=== PATIENT | male | born 1985 | race Caucasian/White ===

== ENCOUNTER 2020-05-25 18:39 | Emergency (ER) | payer SELFPAY ==
[2020-05-25 18:43] VITALS: BP 155/89; PULSE 95; RESP 16; TEMP 36.4; O2SAT 99
--- NOTE | 2020-05-25 18:59 | ED.GENADUL_ITS ---
Discharge Plan Disposition Patient Disposition: HOME Condition: Stable Discharge Details Clinical Impression: Abdominal pain, Elevated blood pressure reading, Elevated ALT measurement, Alcohol abuse Primary Care Provider: None,None ED Provider: Isabella Newman Home Meds and New Rx's Prescriptions: No Action No Known Home Meds RF: 0 Discharge Instructions Instructions: Abuse of Alcohol (ED), Abdominal Pain (ED) Additional Instructions: Your imaging is reassuring today. Please increase your water intake. Please continue with your MiraLAX to help with bowel movements. If you continue to have difficulties, you may try Colace or magnesium citrate. Your location of the pain has me concerned for gallbladder disease. I have referred you for outpatient ultrasound. Have also referred you to a local primary care. Please discuss with your alcohol dependence further with them. As we discussed, abrupt cessation can be dangerous. Please try to cut back on your alcohol intake. Please consider reading recovery teacher again. Please refer to the information in your packet for further details on local options to help you stop drinking safely. Your blood pressure is noted to be elevated today. Please follow-up with your primary care to discuss further. If you develop vomiting, increased pain, fevers or other new/worsening symptoms please seek care urgently once again. Otherwise, please follow-up closely with primary care as well as general surgery. Referrals: Enriqueta Shepard MD [ [facility]] - Discharge Data Discharge Date/Time-TO BE ENTERED AT DEPARTURE: 05/25/20 21:30 Medical Decision Making Patient is a pleasant 34-year-old male presented to complaint of right-sided abdominal pain. He reports that the pain has been intermittent for a week 1 month. States over the past 3 days has become more constant. Finds that it worsens when he drinks alcohol. Patient reports that for the past year he has been drinking approximately 1/5 of vodka daily. Reports he lost his job prompting his return to alcohol. Patient does have a long history of addiction. He denies any nausea vomiting. States that he has not had normal bowel movement 2 days. She does not have any blood in his stool. Reports lower urinary output but reports that he did not drink water. Drinks soda and coffee. Denies testicular pain, penile discharge. On exam, patient appears nontoxic. He does appear anxious. He is noted to be hypertensive blood pressure 155/89. By tachycardic with a heart rate of 95. Lungs are clear, normal cardiac exam. Abdomen is tender along the right side. He is tender both in the right upper and right lower quadrant with pain over McBurney's point as well as a positive Ruth sign. No epigastric or left upper quadrant pain. No CVA tenderness. Differential diagnoses include appendicitis, colitis, cholecystitis. Also considered pancreatitis, alcohol induced liver disease versus other abdominal pathology. Plan for labs and CT imaging. Consulted with reading recovery teacher who came and evaluated patient. Initially, the patient had sounded like he would be interested in this. However, he declined their services to them. He did however take information regarding alcohol cessation. She did discuss safety concerns regarding stopping alcohol. Labs reviewed. No leukocytosis. Stable H&H. CMP largely unremarkable. ALT slightly elevated 78. Lipase within normal limits. FINDINGS: Lungs: Lung bases are clear. Liver: There is marked enlargement of the liver. Liver measures 21 cm. There is a diffuse decrease in hepatic parenchymal density, consistent with fatty infiltration. Gallbladder and bile ducts: Normal. No calcified stones. No ductal dilation. Pancreas: Normal. No ductal dilation. Spleen: Normal. No splenomegaly. Adrenal glands: Normal. No mass. Kidneys and ureters: Normal. No hydronephrosis. Stomach and bowel: No bowel obstruction or significant bowel wall thickening. There is mildly excessive colonic stool content. Appendix: A normal appendix is identified. Intraperitoneal space: Questionable trace free fluid at Quintanilla's pouch versus scarring. No other free fluid, fluid collections, or pneumoperitoneum. Vasculature: Unremarkable. No abdominal aortic aneurysm. Lymph nodes: Unremarkable. No enlarged lymph nodes. Urinary bladder: Unremarkable as visualized. Reproductive: Unremarkable as visualized. Bones/joints: No acute skeletal abnormality or aggressive osseous lesion. Soft tissues: Small bilateral fat containing inguinal hernias. IMPRESSION: 1. Questionable trace free fluid at Quintanilla's pouch versus scarring. 2. No other acute abdominopelvic pathology is otherwise appreciated. I discussed these findings with the patient. He does not have any increased pain after eating fatty foods, the increased pain after alcohol does have a concern for potential gallbladder disease although there is no evidence to suggest cholangitis, occult acute cholecystitis at this time. Questioning more chronic pathology. Plan for outpatient ultrasound. The pain is worse with alcohol, also consider gastritis although the location of the pain is not consistent with this. Patient I discussed p.o. trial of Mylanta and see if this helps his symptoms. Patient has not no change in his symptoms with the Mylanta. He continues to have low-grade abdominal pain. Patient I discussed treatment options. Ordered outpatient follow-up ultrasound. I have asked that he follow-up with general surgery regarding his abdominal discomfort. Patient does not have a local primary care, I have asked that he have follow-up with him as possible for evaluation of his alcohol abuse and elevated blood pressure. Strict return precautions were discussed. Encourage water intake for his constipation. We also discussed treatment options for his constipation. All of his questions and concerns were addressed and he is in agr eement this plan. HPI General Mode of arrival: ambulatory . Date/Time Provider Initiated Documentation: 05/25/20 18:58 . Limitations to Documentation: no limitations . Information obtained by: patient and RN notes reviewed . History of Present Illness 34 year old M presents to the emergency department with the chief complaint of right sided abdominal pain, described as moderate, with intensity rated at 5. Quality is described as aching, and is localized to the abdomen. Patient reports no radiation. Patient started experiencing this month(s) and it has been intermittent. No relieving factors improve symptom(s), Other factors that worsen symptoms (drinking alcohol) . Patient notes no other symptoms.; denies chest pain, diaphoresis, fever/chills, loss of appetite, nausea/vomiting, shortness of breath and weakness. Patient did receive the following treatments prior to arrival, none Related Data Home Medications Medication Instructions Recorded Confirmed Unknown [No Known Home Meds] 05/25/20 05/25/20 Allergies Allergy/AdvReac Type Severity Reaction Status Date / Time No Known Allergies Allergy Unverified 05/25/20 18:46 General Stated Complaint: Abd Prob APURVA: 3 Review of Systems Constitutional Constitutional: Reports as per HPI, Denies chills, Denies fatigue, Denies fever(s) and Denies headache(s) ENT Ears, Nose, Mouth, and Throat: Denies headache(s) Cardiovascular Cardiovascular: Reports as per HPI, Denies chest pain and Denies dyspnea Respiratory Respiratory: Reports as per HPI, Denies cough and Denies dyspnea Gastrointestinal Gastrointestinal: Reports as per HPI Genitourinary Genitourinary: Reports oliguria Musculoskeletal Musculoskeletal: Reports as per HPI and Denies back pain Integumentary/Breasts Skin/Breast: Reports as per HPI and Denies rash Neurologic Neurologic: Reports as per HPI and Denies headache(s) Endocrine Endocrine: Denies fatigue [facility] Social History Smoking/Tobacco Use Status: Former Tobacco Use Smoking risk assessment performed?: Yes Alcohol Intake: current Alcohol Intake frequency: a few times a week Alcohol type: hard liquor Drug use: Occasionally Substance use type: former substance user and marijuana Do you feel safe at home: Yes Do you feel safe in your relationship?: Yes Exam Const General: cooperative, healthy appearing, comfortable, no acute distress, well developed and anxious Nutritional Appearance: well nourished and overweight Orientation: alert and awake HENMT Head: normal to inspection Mouth: moist mucous membranes Resp Effort & Inspection: normal respiratory effort, able to speak in complete sentences and no respiratory distress Auscultation: clear to auscultation bilaterally, no rales, no rhonchi and no wheezes Cardio Rate: regular rate Rhythm: regular rhythm Heart Sounds: S1 normal and S2 normal GI Inspection: normal to inspection, distended, no scars, no visible herniation and no visible pulsation Palpation: soft, no hepatosplenomegaly, not firm, no guarding, no hernias, no pulsatile masses, not rigid and tender in the RLQ, in the RUQ, at McBurney's point and Ruth's sign positive; with no rebound tenderness Percussion: normal to percussion Auscultation: normal bowel sounds Back/Spine/Pelvis Back: no CVA tenderness Skin General skin exam: no rashes or lesions noted Trauma: no lacerations or abrasions Neuro General: patient alert and patient awake Cognition: normal cognition Speech: speech normal Gait: normal gait Psych Appearance: grossly normal and well kempt Mental Status: mental status grossly normal Speech and Movement: speech and movement normal Course Vital Signs Vital signs: Vital Signs Temperature 36.4 C L 05/25/20 18:43 Pulse 95 H 05/25/20 18:43 Respiratory Rate 16 05/25/20 18:43 Blood Pressure 155/89 H 05/25/20 18:43 Pulse Oximetry 99 05/25/20 18:43 Temperature 36.4 C L 05/25/20 18:43 Temperature Source Skin 05/25/20 18:43 Pulse 95 H 05/25/20 18:43 Respiratory Rate 16 05/25/20 18:43 Respiratory Effort 05/25/20 18:48 Blood Pressure 155/89 H 05/25/20 18:43 Blood Pressure Position Sitting 05/25/20 18:43 Pulse Oximetry 99 05/25/20 18:43 Oxygen Delivery Method Room Air 05/25/20 18:43 Oxygen Flow Rate 0 05/25/20 18:43 Pain Level 5 05/25/20 18:43
--- NOTE | 2020-05-25 19:00 | DI.CT_ITS ---
EXAM: CT ABDOMEN PELVIS W CLINICAL HISTORY: right sided abdominal point TECHNIQUE: COMPARISON: No exams were available for comparison FINDINGS: CT examination of the abdomen and pelvis was performed with bolus infusion of 100 cc of Omnipaque 350 . Images obtained through the lung bases are unremarkable. Note is made of hepatic steatosis and mild hepatic enlargement. Spleen is unremarkable in appearance.. Gallbladder and bile ducts are unremarkable. Pancreas is unremarkable in appearance. Adrenals appear normal bilaterally. Kidneys appear normal with no evidence of renal mass, hydronephrosis, or nephrolithiasis. Urinary bl adder is nearly empty, question mild thickening urinary bladder wall, cystitis or bladder outlet obst ruction not excluded. There is no evidence of abdominal or pelvic adenopathy. Abdominal aorta is of normal diameter and no major vascular abnormality is seen. Appendix is normal. No evidence diverticulitis or bowel obstruction. Tiny bilateral fat containing inguinal hernias noted. Impression: No evidence of acute intra-abdominal process. Question slight urinary bladder wall thickening, this is difficult to confirm due to under distention of the bladder. Hepatic steatosis noted. RADIATION DOSE DELIVERED: 1,117.96mGy.cm Total DLP 1,117.96mGy.cm Total DLP DATA REPOSITORY: All CT scans at this facility are submitted to the National Radiology Data Registry (NRDR) Dose Index Registry (DIR) with the [employer] ([employer]). RADIATION OPTIMIZATION: All CT scans at this facility use at least one of these dose optimization te chniques: automated exposure control; mA and/or kV adjustment per patient size (includes targeted exa ms where dose is matched to clinical indication); or iterative reconstruction.
[2020-05-25] MEDS: Lactated Ringers 1,000 ML 1000 ML IV (19:34)
[2020-05-25 19:38] VITALS: BP 173/86; PULSE 88; RESP 16; O2SAT 98
[2020-05-25 19:40] LABS: Abs Immature Grans 0.07 10^3/uL (0.0-0.06); Absolute Basophil Count 0.05 10^3/uL (0.0-0.2); Absolute Eosinophil Count 0.04 10^3/uL (0.0-0.7); Absolute Lymphocyte Count 2.37 10^3/uL (1.2-3.4); Absolute Monocyte Count 0.84 10^3/uL (0.1-0.8); Absolute Neutrophil Count 4.81 10^3/uL (1.2-6.7); Basophils % 0.6; Eosinophils % 0.5; HCT 44.4 % (40.0-50.0); HGB 15.1 g/dL (13.5-17.5); Immature Grans % 0.9; MCH 32.8 pg (27.0-33.0); MCV 96.3 fL (80-95); MPV 9.8 fL (8.0-11.0); Monocytes % 10.3; Neutrophils % 58.7; Nucleated RBC 0 %; Platelet Count 290 10^3/uL (130-400); RBC 4.61 10^6/uL (4.36-5.78); RDW-SD 42.6 fL; WBC 8.18 10^3/uL (4.4-10.8)
[2020-05-25 19:42] LABS: Bilirubin Negative (Negative); Blood Negative (Negative); Clarity Clear (Clear); Glucose Negative (Negative); Ketones Trace mg/dL (Negative); Leukocyte Esterase Negative (Negative); Nitrite Negative (Negative); Urobilinogen 0.2 EU/dL (Up TO 0.2)
[2020-05-25 19:54] LABS: INR 1.1 (0.9-1.1); PTT Activated 28.1 sec (21.0-27.5); Prothrombin Time 11.2 sec (9.3-11.0)
[2020-05-25 20:00] LABS: ALT 78 U/L (16-63); AST 35 U/L (15-37); Albumin 4.1 g/dL (3.4-5.0); Alkaline Phosphatase 110 U/L (46-116); Anion Gap 7.6 mmol/L (3-11); BUN 7 mg/dL (7-18); Bilirubin, Total 0.5 mg/dL (0.2-1.0); CO2 28.4 mmol/L (21.0-32.0); CREATININE 0.9 mg/dL (0.70-1.30); Calcium 9.1 mg/dL (8.5-10.1); Chloride 103 mmol/L (98-107); Glucose 97 mg/dL (74-106); Lipase 59 U/L (73-393); Magnesium 1.9 mg/dL (1.8-2.4); Potassium 4.1 mmol/L (3.5-5.1); Sodium 139 mmol/L (136-145)
[2020-05-25] MEDS: Normal Saline Flush 10 ML SYR IVP (20:31)
[2020-05-25] MEDS: Normal Saline - Diluent 50 ML VIAL IV (20:31)
--- NOTE | 2020-05-25 20:55 | DI.VRAD_ITS ---
PROCEDURE INFORMATION: Exam: CT Abdomen And Pelvis With Contrast Exam date and time: 05/25/2020 8:23 PM Age: 34 years old Clinical indication: Abdominal pain; Localized; Right upper quadrant (ruq); Patient HX: Right sided abdominal point tender over mcburney's and ruq with +murphys TECHNIQUE: Imaging protocol: Computed tomography of the abdomen and pelvis with contrast. Radiation optimization: All CT scans at this facility use at least one of these dose optimization techniques: automated exposure control; mA and/or kV adjustment per patient size (includes targeted exams where dose is matched to clinical indication); or iterative reconstruction. Contrast material: VISIPAQUE 320; Contrast volume: 100 ml; Contrast route: INTRAVENOUS (IV); COMPARISON: No relevant prior studies available. FINDINGS: Lungs: Lung bases are clear. Liver: There is marked enlargement of the liver. Liver measures 21 cm. There is a diffuse decrease in hepatic parenchymal density, consistent with fatty infiltration. Gallbladder and bile ducts: Normal. No calcified stones. No ductal dilation. Pancreas: Normal. No ductal dilation. Spleen: Normal. No splenomegaly. Adrenal glands: Normal. No mass. Kidneys and ureters: Normal. No hydronephrosis. Stomach and bowel: No bowel obstruction or significant bowel wall thickening. There is mildly excessive colonic stool content. Appendix: A normal appendix is identified. Intraperitoneal space: Questionable trace free fluid at Quintanilla's pouch versus scarring. No other free fluid, fluid collections, or pneumoperitoneum. Vasculature: Unremarkable. No abdominal aortic aneurysm. Lymph nodes: Unremarkable. No enlarged lymph nodes. Urinary bladder: Unremarkable as visualized. Reproductive: Unremarkable as visualized. Bones/joints: No acute skeletal abnormality or aggressive osseous lesion. Soft tissues: Small bilateral fat containing inguinal hernias. IMPRESSION: 1. Questionable trace free fluid at Quintanilla's pouch versus scarring. 2. No other acute abdominopelvic pathology is otherwise appreciated. Dictated and Authenticated by: Nils Owens MD. Ordering:BANDAR Mason MD
[2020-05-25] MEDS: Mylanta Suspension 30 ML CUP PO (21:18)
[2020-05-25 21:28] VITALS: BP 133/66; PULSE 80; RESP 17; TEMP 36.6; O2SAT 98
--- NOTE | 2020-05-26 13:12 | NUR.NOTE ---
Nursing Note: Referral was faxed for US to DI last night. DI called pt and left message with time and to call and confirm the appt, He did not call to confirm and did not show up for the appt per DI. Shamika Gloria
--- NOTE | 2020-05-26 13:27 | NUR.NOTE ---
Nursing Note: [facility] for follow up ABDIRASHID for abd pain. Shamika Gloria
== END 2020-05-25 21:30 | disposition home or self-care (01) ==
PROVIDERS: Emergency Provider Physician Assistant
DX: R10.11 Right upper quadrant pain (principal); R03.0 Elevated blood-pressure reading, without diagnosis of hypertension; R74.01 Elevation of levels of liver transaminase levels; F10.10 Alcohol abuse, uncomplicated
CPT/HCPCS: 36415; 80053; 83690; 96360; 99285; 74177; 81003; 83735; 85025; 85610; 85730; 99284

== ENCOUNTER 2023-04-10 14:50 | Outpatient (REF) | payer MEDICAID, SELFPAY ==
[2023-04-10 15:52] LABS: Abs Immature Grans 0.04 10^3/uL (0.0-0.06); Absolute Basophil Count 0.07 10^3/uL (0.0-0.2); Absolute Eosinophil Count 0.34 10^3/uL (0.0-0.7); Absolute Lymphocyte Count 2.47 10^3/uL (1.2-3.4); Absolute Monocyte Count 0.86 10^3/uL (0.1-0.8); Absolute Neutrophil Count 4.78 10^3/uL (1.2-6.7); Basophils % 0.8; HCT 39.7 % (40.0-50.0); HGB 13.3 g/dL (13.5-17.5); Immature Grans % 0.5; Lymphocytes % 28.9; MCH 29.8 pg (27.0-33.0); MCHC 33.5 % (32.0-36.0); MCV 89 fL (80-95); MPV 9.5 fL (8.0-11.0); Neutrophils % 55.8; Platelet Count 294 10^3/uL (130-400); RBC 4.46 10^6/uL (4.36-5.78); RDW 12.6 % (11.8-14.1); RDW-SD 41.4 fL; WBC 8.56 10^3/uL (4.4-10.8)
[2023-04-10 16:19] LABS: ALT 80 U/L (16-63); AST 55 U/L (15-37); Albumin 3.7 g/dL (3.4-5.0); Alkaline Phosphatase 135 U/L (46-116); Anion Gap 5.2 mmol/L (3-11); BUN 16 mg/dL (7-18); Bilirubin, Total 0.5 mg/dL (0.2-1.0); CO2 29.8 mmol/L (21.0-32.0); CREATININE 0.7 mg/dL (0.70-1.30); Calcium 9.1 mg/dL (8.5-10.1); Calculated LDL 121 mg/dL (<100); Chloride 99 mmol/L (98-107); Cholesterol 189 mg/dL (<200); Estimated GFR 122.47 (mL/min/1.73m2); Glucose 99 mg/dL (74-106); HDL Cholesterol 52 mg/dL (40-60); Potassium 4.5 mmol/L (3.5-5.1); Sodium 134 mmol/L (136-145); Total Protein 7.7 g/dL (6.4-8.2); Triglyceride 83 mg/dL (<150)
[2023-04-10 16:38] LABS: Vitamin D 25 Total 19.8 ng/mL (30-100)
[2023-04-10 16:44] LABS: Uric Acid 5.7 mg/dL (3.5-7.2)
[2023-04-10 23:48] LABS: HIV-1/2 Ag & Ab Screen Negative (Negative)
[2023-04-10 23:57] LABS: Hepatitis C Ab w Rflx HCV PCR Negative (Negative)
[2023-04-11 11:52] LABS: Syphilis Serology (RPR) Negative (Negative)
[2023-04-12 14:40] LABS: Chlamydia Result Negative (Negative); GC Result Negative (Negative)
== END 2023-04-10 14:51 | disposition home or self-care (01) ==
LOC: NCHCN 14:50
PROVIDERS: Visit Provider Nurse Practitioner Family
DX: M79.674 Pain in right toe(s) (principal); Z00.00 Encounter for general adult medical examination without abnormal findings
CPT/HCPCS: 80053; 80061; 82306; 86803; 87389; 87491; 87591; 84550; 85025; 86592

== ENCOUNTER → 2023-04-14 00:25 | Outpatient (CLI) | payer MEDICAID, SELFPAY ==
--- NOTE | 2023-04-14 | DI.US_ITS ---
Exam(s) US ABDOMEN LIMITED EXAM: US ABDOMEN LIMITED CLINICAL HISTORY: ELEVATED LIVER ENZYMES R74.01 HX ALCOHOL ABUSE TECHNIQUE: Ultrasound abdomen performed using standard protocol. COMPARISON: CT CT ABDOMEN PELVIS W from 05/25/2020 FINDINGS: There is no ascites evident. LIVER: Liver is hyperechoic indicating steatosis. There no discrete focal hepatic lesions identified . GALLBLADDER/BILIARY: There are no gallstones. No gallbladder wall edema nor pericholecystic fluid. The common hepatic duct isnot dilated, measuring 3-4mm at the level of maría hepatis. PANCREAS: There is no evidence of pancreatic mass nor dilatation of the pancreatic duct. RIGHT KIDNEY:No evidence of solid mass, calculus, nor hydronephrosis. No cortical cysts evident. IMPRESSION: 1. No evidence of cholelithiasis nor dilatation of the biliary tree. 2. Hepatic steatosis. No discrete focal hepatic lesions. 3. No other right upper quadrant ultrasound findings and no ascites evident DATA REPOSITORY:
== END ==
PROVIDERS: Visit Provider Nurse Practitioner Family
DX: K76.0 Fatty (change of) liver, not elsewhere classified (principal)
CPT/HCPCS: 76705

== ENCOUNTER 2024-03-27 10:03 | Emergency (ER) | payer MEDICAID, SELFPAY ==
[2024-03-27 10:06] VITALS: BP 184/97; PULSE 112; RESP 18; TEMP 36.6; O2SAT 97
--- NOTE | 2024-03-27 10:58 | ED.GENADUL_ITS ---
Discharge Plan Disposition Patient Disposition: Home Condition: Good Discharge Details Chief Complaint: PsychEval Clinical Impression: Acute hypokalemia, Encounter for medical screening examination Primary Care Provider: Unknown,Unknown ED Provider: Raudel Olmstead Home Meds and New Rx's Prescriptions: No Action No Known Home Meds Discharge Instructions Instructions: Hypokalemia Additional Instructions: At this time you have been seen and assessed and no significant medical abnormality is noted. Your potassium is slightly low, please focus on a potassium rich diet for the next few weeks. Please follow-up closely with your supportive groups on an outpatient nonemergent basis. If you notice any worsening of your symptoms, or any new symptoms such as vomiting, diarrhea, fever, chills, shortness of breath, chest pain, numbness, weakness, or fainting , please return immediately to the emergency department for reevaluation. Please follow up with your primary care provider as soon as possible for reassessment and reevaluation. As always, it was a pleasure participating in your medical care today. HPI General Date/Time Provider Initiated Documentation: 03/27/24 10:07 . HPI Narrative: This is a pleasant 38-year-old male who denies any significant past medical history aside for previous history of alcohol abuse, crack use, xylazine use, fentanyl use, who states that I have been sober for quite some time now who presents today for mental health evaluation. For months state police were called to his family's home after there was allegedly a big argument between the patient and family. Per family he had been going on and on about various atypical and odd thoughts, with components of hyperreligiosity. Patient was found walking down the road, [facility] approached him, and he stated that he would be happy to come in to be evaluated to prove that he is not crazy. He was brought in for further assessment. Patient denies any homicidal, suicidal ideations, auditory or visual hallucinations. He states that he has been segovia bstance free for the past 3 to 4 weeks. He denies any personal history of mental health issues, and states that he has not taken any mental health medications in the past. He denies fever chills or headache. He denies any other complaints. He does speak quite profusely about various ideas and concepts including political anabaptist and theoretical concepts. Related Data Home Medications ?Medication ?Instructions ?Recorded ?Confirmed Unknown [No Known Home Meds] 05/25/20 03/27/24 Allergies Allergy/AdvReac Type Severity Reaction Status Date / Time No Known Allergies Allergy Unverified 03/27/24 10:12 General Stated Complaint: PsychEval APURVA: 2 Exam Narrative Exam Narrative: 1.Const: Well-nourished, Well-developed, appearing stated age 2.Eyes: PERRL, no conjunctival injection, and symmetrical lids. 3.ENT: Atraumatic external nose and ears. Moist MM. Neck: Symmetric, trachea midline, No thyromegaly. 4.CVS: +S1/S2, Peripheral pulses 2+ and equal in all extremities. Brisk capillary refill in all extremities. 5.RESP: Unlabored respiratory effort. Clear to auscultation bilaterally. No wheezes rales or rhonchi 6.GI: Soft, Nontender/Nondistended, No hepatosplenomegaly. No guarding or rebound. 7.MSK: Normocephalic/Atraumatic, Extremities w/o deformity or ttp No cyanosis or clubbing, Normal movement of all extremities 8.Skin: Warm, Dry. No rashes or lesions. 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 Sensation grossly intact, no focal neurologic deficits. 10.Psych: (AAO) x3. Patient demonstrates pressured speech, and flight of ideas. Multiple topics are covered in a short amount of time. Patient is very cordial otherwise, with no confrontational component. Course Vital Signs Vital signs: Vital Signs Temperature 36.6 C 03/27/24 10:06 Pulse 112 H 03/27/24 10:06 Respiratory Rate 18 03/27/24 10:06 Blood Pressure 184/97 H 03/27/24 10:06 Pulse Oximetry 97 03/27/24 10:06 Temperature 36.6 C 03/27/24 10:06 Temperature Source Oral 03/27/24 10:06 Pulse 112 H 03/27/24 10:06 Respiratory Rate 18 03/27/24 10:06 Blood Pressure 184/97 H 03/27/24 10:06 Blood Pressure Position Sitting 03/27/24 10:06 Pulse Oximetry 97 03/27/24 10:06 Oxygen Delivery Method Room Air 03/27/24 10:06 Oxygen Flow Rate 0 03/27/24 10:06 Medical Decision Making This is a pleasant 38-year-old male who denies any significant past medical history aside for previous history of alcohol abuse, crack use, xylazine use, fentanyl use, who states that I have been sober for quite some time now who presents today for mental health evaluation. For months state police were called to his family's home after there was allegedly a big argument between the patient and family. Per family he had been going on and on about various atypical and odd thoughts, with components of hyperreligiosity. Patient was found walking down the road, P approached him, and he stated that he would be happy to come in to be evaluated to prove that he is not crazy. He was brought in for further assessment. Patient denies any homicidal, suicidal ideations, auditory or visual hallucinations. He states that he has been substance free for the past 3 to 4 weeks. He denies any personal history of mental health issues, and states that he has not taken any mental health medications in the past. He denies fever chills or headache. He denies any other complaints. He does speak quite profusely about various ideas and concepts including political anabaptist and theoretical concepts. Physical exam demonstrates well-appearing male, notable pressured speech and flight of ideas, he discusses multiple topics in a very short period of time, including WW3, the evangelical of President elected Trump, nuclear holocaust, the social challenges he has undergone over the last 3 years, etc. He notably denies any desire to hurt anyone. He is quite compliant with all requests and questions. He is very pleasant to interact with otherwise. Differential certainly does include kojo, questionable bipolar, but the statements being made seem well grounded in reality although on the fringes of send reality and they do not sound overly hallucinated. While the patient certainly appears to have a heightened excitability at this time he does not seem to be actively psychotic on my assessment. Out of an abundance of precaution we will get screening labs, we will evaluate for acute abnormalities, we will have mental health come and assess the patient. Patient otherwise remained stable at the time. Patient has been seen and assessed by mental health. They see no indication for involuntary services. Patient is declining any other additional assistance, th ey feel that patient is safe to discharge from a mental health standpoint. At this time the patient is not showing any concerning components of homicidal or suicidal ideations. He is excited components appear to be well-contained and at this time based in reality. While this may change in the future, we have recommended that he continue to follow-up closely with mental health advocates and counselors. He does have support groups that he states that he will be following up with. Safety plan was done. Patient's potassium is slightly low at 3.0, we did give oral potassium of 40 mEq. Recommend high potassium diet at home. Patient otherwise stable for discharge. I have extensively reviewed the treatment plan and discharge instructions with the patient. I have addressed all patient concerns at this time. The patient was made aware of what symptoms to monitor for that would warrant a return to the emergency department. Discussed the plan with the patient, they demonstrate verbal understanding and agreement with our assessment and plan at this time. The documentation in this chart was dictated using [employer] dictation software. Please excuse any dictation errors. Quality:SDOH Health Related Social Needs: No Data to Display PFSH All Active Problems (Updated 03/27/24 @ 12:13 by Raudel Olmstead DO) Encounter for medical screening examination (Acute) Acute hypokalemia (Acute) Alcohol abuse (Chronic) Elevated ALT measurement (Acute) Elevated blood pressure reading (Acute) Abdominal pain (Acute) Social History Smoking/Tobacco Use Status: Former Tobacco Use Smoking risk assessment performed?: Yes Alcohol Intake: current Alcohol Intake frequency: a few times a week Alcohol type: hard liquor Drug use: Occasionally Substance use type: former substance user and marijuana Details: Pt states he uses marijuana edibles occasionally 03/27/24 Pt denies ETOH use x approx. 3 weeks 03/27/24 Do you feel safe at home: Yes Do you feel safe in your relationship?: Yes
[2024-03-27 11:13] LABS: Abs Immature Grans 0.02 10^3/uL (0.0-0.06); Absolute Basophil Count 0.05 10^3/uL (0.0-0.2); Absolute Eosinophil Count 0.02 10^3/uL (0.0-0.7); Absolute Lymphocyte Count 2.13 10^3/uL (1.2-3.4); Absolute Monocyte Count 0.76 10^3/uL (0.1-0.8); Absolute Neutrophil Count 5.51 10^3/uL (1.2-6.7); Basophils % 0.6 %; Eosinophils % 0.2 %; HCT 38.9 % (40.0-50.0); HGB 13.4 g/dL (13.5-17.5); Immature Grans % 0.2 %; Lymphocytes % 25.1 %; MCH 30.6 pg (27.0-33.0); MCHC 34.4 % (32.0-36.0); MCV 89 fL (80-95); MPV 9.5 fL (8.0-11.0); Neutrophils % 64.9 %; Platelet Count 300 10^3/uL (130-400); RBC 4.38 10^6/uL (4.36-5.78); RDW-SD 42.4 fL; WBC 8.49 10^3/uL (4.4-10.8)
[2024-03-27 11:41] LABS: ALT 18 U/L (16-63); AST 15 U/L (15-37); Albumin 4.1 g/dL (3.4-5.0); Alkaline Phosphatase 100 U/L (46-116); Anion Gap 7.8 mmol/L (3-11); BUN 6 mg/dL (7-18); CO2 29.2 mmol/L (21.0-32.0); CREATININE 0.9 mg/dL (0.70-1.30); Calcium 9.2 mg/dL (8.5-10.1); Chloride 105 mmol/L (98-107); Estimated GFR 112.81 (mL/min/1.73m2); Glucose 95 mg/dL (74-106); Salicylate < 2.8 mg/dL (<2.8); Sodium 142 mmol/L (136-145); TSH (W/Ref FT4) 0.78 uIU/mL (0.36-3.74); Total Protein 7.7 g/dL (6.4-8.2)
[2024-03-27 11:42] LABS: Acetaminophen < 2 ug/mL (10-30); ETHANOL BLOOD < 3.0 mg/dL (<10)
--- NOTE | 2024-03-27 12:06 | PDOC.MHCN_ITS ---
Date of service: 03/27/24 Time of Service: 12:02 Mental Health Emergency Note Release [facility] release signed:: No Reason for Visit Fernando was brought to [facility] by P for a mental health evaluation In the last 2 weeks has the pt presented for ES prior to today?: Unknown Client Information Client is: New Well Housed: No,status: Not homeless, Unstable housing Non Suicidal Self Injury Current: No History: No Safety Risk/Harm to Self or Others Current Ideation to Harm Self or Others: No Risk: Does risk to harm exist?: No Risk: N/A Duty to warn indicated: No Asssessment/Mental Status Appearance: Unremarkable Attitude: Cooperative Behavior: Gait disturbances Speech: Normal Affect: Cogruent with mood Mood: Stressed and Anxious Thought process: Tangential Hallucinations: No evidence Delusions: No evidence Attention: Unremarkable Perception: Not impaired Orientation: Fully orientated Memory: Intact Insight: Fair Judgement: Fair Neurovegetative Symptoms Sleep: No change Appetitie: No change Interests: No change Energy: No change Libido: Not applicable Substance Use: Do you use nicotine?: No Have you used substances in the last 7 days?: No Additional Issues: Assaultive/Threatening Behavior: No Medical Concerns: No Client engaged in active self harm w/weapon: No Threatening to run away: No Child reported abuse/neglect: No Voluntarily presenting for services: Yes Domestic violence is a concern: No Extreme Psychosis or extreme behavior is present: No Impression Fernando presents to this lead technical writer in paper scrubs, sitting in a hospital bed in Zone B. Fernando reports he is doing okay, he is not crazy and he is angry about what is happening. Fernando reports his family has shunned him and he has shunned them back. Fernando reports his mother forged his signature on a lease document and he plans to take her to court for it as he does not want the lease and he knows that is illegal. 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 Fernando disclosed he does not have mental health issues, does not need support, is not endorsing SI, HI, or NSSI and never has. Fernando disclosed he has a good relationship with God so he could never harm himself and he would only harm someone else in self defense. Fernando disclosed he used to struggle with his substance use but he is currently sober and attends to maintain sobriety. Fernando reports he did not ask to be brought to the hospital for an eval so he is unsure why [facility] brought him. Fernando reports he is under a lot of stress with his family and trying to get custody of his daughter. Fernando continues to state he does not want MH support but is willing to engage with this lead technical writer throughout the assessment Resources Reosurces reviewed and given:: 988 and [facility] Plan/Disposition Recommended Disposition: Community resources. Plan: Fernando will return to the community on a safety plan. Fernando has a plan to go to his latter-day once discharged Person reported agreement to plan: Yes Reports/communication Outcome discussed with: ED/Personnel
[2024-03-27] MEDS: Potassium Chloride 20 MEQ TABCR 40 MEQ PO (12:17)
== END 2024-03-27 12:38 | disposition home or self-care (01) ==
PROVIDERS: Emergency Provider Student in an Organized Health Care Education/Training Program
DX: E87.6 Hypokalemia (principal); Z04.89 Encounter for examination and observation for other specified reasons
CPT/HCPCS: 00123; 80053; 80307; 99283; 80320; 80329; 84443; 85025

== ENCOUNTER 2024-03-29 03:56 | Emergency (ER) | payer MEDICAID, SELFPAY ==
[2024-03-29 04:02] VITALS: BP 191/78; PULSE 97; RESP 16; TEMP 37.1; O2SAT 97
--- NOTE | 2024-03-29 04:09 | ED.GENADUL_ITS ---
Discharge Plan Disposition Patient Disposition: Home Condition: Good Discharge Details Clinical Impression: Cold exposure Primary Care Provider: Unknown,Unknown ED Provider: Josefina Jackson Home Meds and New Rx's Prescriptions: No Action No Known Home Meds Discharge Instructions Additional Instructions: Call 211 to help identify resources to support you obtaining housing. Call your primary care doctor in the morning to schedule an appointment to followup on your blood pressure which is high here in the ED. Return to the emergency department for new or worsening symptoms. HPI General Mode of arrival: ambulatory . Date/Time Provider Initiated Documentation: 03/29/24 03:57 . Limitations to Documentation: no limitations . Information obtained by: patient and old records reviewed . HPI Narrative: 38yo M presenting for it's really cold out. Denies any physical complaints other than feeling cold. Has been walking around since 9pm trying to stay warm. Denies SI/HI/AH/VH. Otherwise in his usual state of health. Seen in this ED on 03/27 for mental health evaluation, evaluated by [facility] and declined services at that time. He denies any mental health concerns today and states that he is just looking for somewhere to sleep. Related Data Home Medications ?Medication ?Instructions ?Recorded ?Confirmed Unknown [No Known Home Meds] 05/25/20 03/29/24 Allergies Allergy/AdvReac Type Severity Reaction Status Date / Time No Known Allergies Allergy Verified 03/29/24 04:11 General Stated Complaint: ColdExpose APURVA: 5 Review of Systems Narrative: see HPI Exam Narrative Exam Narrative: General: Alert, well appearing, well nourished, in no acute distress. Head: Normocephalic, atraumatic Neck: Trachea midline, ?Neck supple. Cardiac: ?No cyanosis. Resp: No respiratory distress. Speaking in full sentences. Abd: ?Non-distended Extremities: ?No deformities.? No peripheral edema. Hands and feet without indication of frostbite/frostnip. Brisk capillary refill. Neurologic: GCS 15. ? Moves all extremities freely against gravity Psych: Calm, cooperative.? Well groomed.? Mood tired, affect congruent.? Speech with normal volume, rate, rythym and tone. Linear and goal directed.? Denies SI/HI/AH/VH. ? Does not appear to be responding to internal stimuli. No psychomotor slowing or agitation. Course Vital Signs Vital signs: Vital Signs Temperature 37.1 C 03/29/24 04:02 Pulse 97 H 03/29/24 04:02 Respiratory Rate 16 03/29/24 04:02 Blood Pressure 191/78 H 03/29/24 04:02 Pulse Oximetry 97 03/29/24 04:02 Temperature 37.1 C 03/29/24 04:02 Temperature Source Temporal Artery Scan 03/29/24 04:02 Pulse 97 H 03/29/24 04:02 Respiratory Rate 16 03/29/24 04:02 Blood Pressure 191/78 H 03/29/24 04:02 Blood Pressure Position Sitting 03/29/24 04:02 Pulse Oximetry 97 03/29/24 04:02 Oxygen Delivery Method Room Air 03/29/24 04:02 Oxygen Flow Rate 0 03/29/24 04:02 Pain Level 0 03/29/24 04:02 Medical Decision Making 38yo M presenting for it's really cold out. Denies any other physical complaints or mental health concerns includign SI/HI/AH/VH. No numbness or tingling in feet or hands. Hypertensive on arrival, vital signs otherwise reassuring. No chest pain, shortness of breath, vision changes, or decreased urine output to suggest hypertensive emergency; would not get labs and advised PCP followup for this. No indication of frostbite/dewitt nip on exam and he has no other complaints aside from cold. Does not appear to be in acute mental health crisis, does not want MH evaluation, and certainly does not meet involuntary criteria. I encouraged Mr. Molina to reach out to available services (i.e. [facility][note 3]) to assist with obtaining housing resources. Discharged; discharge instructions and return precautions were reviewed with patient who verbalized understanding. All questions were answered and he is in agreement with the plan. Quality:[facility] Health Related Social Needs: No Data to Display PFSH All Active Problems (Updated 03/29/24 @ 04:11 by Josefina Jackson MD) Cold exposure (Acute) Encounter for medical screening examination (Acute) Acute hypokalemia (Acute) Alcohol abuse (Chronic) Elevated ALT measurement (Acute) Elevated blood pressure reading (Acute) Abdominal pain (Acute) Social History Smoking/Tobacco Use Status: Former Tobacco Use Smoking risk assessment performed?: Yes Alcohol Intake: current Alcohol Intake frequency: a few times a week Alcohol type: hard liquor Drug use: Occasionally Substance use type: former substance user and marijuana Details: Pt states he uses marijuana edibles occasionally 03/27/24 Pt denies ETOH use x approx. 3 weeks 03/27/24 Do you feel safe at home: Yes Do you feel safe in your relationship?: Yes
== END 2024-03-29 06:00 | disposition home or self-care (01) ==
PROVIDERS: Emergency Provider Student in an Organized Health Care Education/Training Program
DX: T69.9XXA Effect of reduced temperature, unspecified, initial encounter (principal); Z59.00 Homelessness unspecified
CPT/HCPCS: 99282; 99283

== ENCOUNTER 2024-03-29 22:08 | Emergency (ER) | payer MEDICAID, SELFPAY ==
[2024-03-29 22:12] VITALS: BP 144/70; PULSE 97; RESP 18; TEMP 37.1; O2SAT 98
--- NOTE | 2024-03-29 22:30 | ED.GENADUL_ITS ---
Discharge Plan Discharge Details Chief Complaint: PsychEval Primary Care Provider: Unknown,Unknown ED Provider: Candelaria Romo Home Meds and New Rx's Prescriptions: No Action No Known Home Meds HPI General Mode of arrival: ambulatory . Date/Time Provider Initiated Documentation: 03/29/24 22:10 . Limitations to Documentation: no limitations . Information obtained by: patient and old records reviewed . HPI Narrative: HPI: This is a 38-year-old male patient who has a past medical history significant for depression, anxiety, polysubstance use disorder in early remission, and homelessness who is presenting for evaluation of hallucinations. The patient was discharged from our facility this morning, after sleeping overnight after he presented for cold exposure in the setting of his homelessness. He states that since the fall due to his homelessness he has had poor sleep, states that he believes he started experiencing hallucinations at that time due to his poor sleep. States that he often sees shimmering lights and shooting stars across his vision, sees numbers that are incorrect, and hears voices and music. Denies command hallucinations, denies suicidal or homicidal ideation. States that he occasionally feels paranoid, especially as regards having his phone hacked. States that the quality and quantity of the hallucinations has not changed and there was no acute event that prompted him to seek care tonight. The patient reports that he left this morning and had difficulty finding a place to stay, and states that today he decided that he was going to get help for the symptoms. He is interested in speaking with a social work to discuss mental health options. He states that he has been sober from fentanyl/xylazine for 3 months, crack for 2 month, has not use marijuana for 1 month. He does state that he drank alcohol 5 days ago, is not a daily or frequent drinker and has no history of severe alcohol withdrawal. Today the patient presents voluntarily, states that he has not had any ingestion or made any attempts to harm himself. He presented to the police station and they brought him here, though he was not accompanied by police and does not appear to be in police custody. Exam: Gen: Awake and alert, in no apparent distress HEENT: Non-icteric sclera, pupils equal and reactive at 3 mm bilaterally, EOMs are full, horizontal nystagmus extinguishable after a few beats bilaterally Neck: Supple Lungs: No apparent respiratory distress, normal respiratory effort. Lung sounds clear and equal bilaterally CV: Appears well perfused, heart with regular rate and rhythm, strong distal pulses Abdomen: Non-distended MSK: Moves 4 extremities without apparent limitation in ROM Skin: Visualized skin without rashes, cyanosis. Neuro: Normal Gait, no obvious focal deficits or facial asymmetry. Speaks in full, clear sentences. Psych: Endorsing hallucinations, denies SI/HI MDM: This is a 38-year-old male patient presenting for evaluation of several months of hallucinations. Differential includes but is not limited to primary psychiatric disorder, certainly considered alteration in sleep habits and patterns. Given the duration of time since his last substance use, this is unlikely to represent intoxication or acute withdrawal syndromes. He has no neurodeficits and his visual symptoms are more consistent with something like ocular strain or scotomas, and seem less consistent with symptoms due to intr acranial lesions. He has been tolerating oral intake, and is hemodynamically appropriate, and I have a lower concern for metabolic and electrolyte derangement, dehydration. I certainly considered presentation for secondary gain due to the patient's report of difficulty finding somewhere to sleep. At this time, the patient meets smart criteria for medical clearance without laboratory evaluation or imaging. He is voluntary, but given his new complaints, would benefit from an evaluation by [facility]. ED Course: The patient was resting comfortably, awaiting NK chest evaluation at the time that I signed him out to the oncoming provider. He remains voluntary, has not required any medications for restraint or sedation, and was hemodynamically appropriate throughout my shift. Candelaria Romo MD Related Data Home Medications ?Medication ?Instructions ?Recorded ?Confirmed Unknown [No Known Home Meds] 05/25/20 03/29/24 Allergies Allergy/AdvReac Type Severity Reaction Status Date / Time No Known Allergies Allergy Verified 03/29/24 04:11 General Stated Complaint: PsychEval APURVA: 2 Course Vital Signs Vital signs: Vital Signs Temperature 37.1 C 03/29/24 22:12 Pulse 97 H 03/29/24 22:12 Respiratory Rate 18 03/29/24 22:12 Blood Pressure 144/70 H 03/29/24 22:12 Pulse Oximetry 98 03/29/24 22:12 Temperature 37.1 C 03/29/24 22:12 Temperature Source Temporal Artery Scan 03/29/24 22:12 Pulse 97 H 03/29/24 22:12 Respiratory Rate 18 03/29/24 22:12 Blood Pressure 144/70 H 03/29/24 22:12 Blood Pressure Position Sitting 03/29/24 22:12 Pulse Oximetry 98 03/29/24 22:12 Oxygen Delivery Method Room Air 03/29/24 22:12 Oxygen Flow Rate 0 03/29/24 22:12 Pain Level 0 03/29/24 22:12 Medical Decision Making Quality:SDOH Health Related Social Needs: No Data to Display PFSH All Active Problems (Updated 03/29/24 @ 04:11 by Josefina Jackson MD) Cold exposure (Acute) Encounter for medical screening examination (Acute) Acute hypokalemia (Acute) Alcohol abuse (Chronic) Elevated ALT measurement (Acute) Elevated blood pressure reading (Acute) Abdominal pain (Acute) Social History Smoking/Tobacco Use Status: Former Tobacco Use Smoking risk assessment performed?: Yes Alcohol Intake: current Alcohol Intake frequency: a few times a week Alcohol type: hard liquor Drug use: Occasionally Substance use type: former substance user and marijuana Details: Pt states he uses marijuana edibles occasionally 03/27/24 Pt denies ETOH use x approx. 3 weeks 03/27/24 Do you feel safe at home: Yes Do you feel safe in your relationship?: Yes PAWSS Have you Been Recently Intoxicated or Drunk Within the Last 30 days?: Yes Have you Ever Experienced Previous Episodes of Alcohol Withdrawal?: Yes Have you ever Experienced Withdrawal Seizures?: Yes Have you ever Experienced Delirium Tremens(DT)s?: Yes Have you ever undergone Alcohol Rehabilitation Treatment (i.e, inpt ot outpatient treatment programs)?: No Have you ever Experienced Blackouts?: Yes Have you ever Combined Alcohol with other Downers within the last 90 days?: No Have you ever Combined Alcohol with any other Substance of Abuse during the last 90 days?: No Positive Blood Alcohol level on Presentation? [PCS.BAL]: No Evidence of Increased Autonomic Activity (i.e. HR>120, tremor, sweating, agitation, nausea)?: No Result: 5
--- OUTSIDE RECORDS SUMMARY | 2024-03-29 22:34 | XMS_ITS | Encounter Summary ---
Author Organization [facility] Address [address] [place] [address] Care Team Providers Care Entry Level Name Role Phone Unavailable Primary Care Provider Unavailabl e Encounter Details Date Type Department Care Team (Latest Contact Info) Description 08/22/2023 Specialty Pharmacy [facility] [address] [place] [address] Dorina Baker RPH Set up initial fill for Addiction Medicine, Patient Education for Addiction Medicine, Prospective Review for Addiction Medicine Social History Tobacco Use Types Packs/Day Years Used Date Smoking Tobacco: Never Assessed Sex and Gender Information Value Date Recorded Sex Assigned at Not on file Legal Sex Male 16:17 EST Gender Identity Not on file Sexual Orientation Not on file documented as of this encounter Progress Notes * Dorina Baker RPH - 08/22/2023 0940 EDT 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 To contact the clinic call: : DANI Justin Baseline labs: Not available - outside provider, outside lab Current medications: Outpatient Encounter Medications as of 08/22/2023 Medication Sig buprenorphine (BRIXADI) 24 mg/0.48 mL solution, extended rel syringe Inject 24 mg into the skin once a week. Daily Max: 24 mg cloNIDine HCL (CATAPRES) 0.1 mg tablet Take 1 Tablet by mouth every 8 hours as needed. hydrOXYzine (ATARAX) 25 mg tablet Take 1 Tablet by mouth every 6 hours as needed. traZODone (DESYREL) 50 mg tablet Take 1 Tablet by mouth at bedtime. No facility-administered encounter medications on file as of 08/22/2023. Allergies: NKDA Drug Interactions and Management Plan: Medication list source: Epic chart review, [facility] information, and [facility] DDI with current medication list checked Drug-drug interactions identified: None Comorbidities: reviewed Coinfection/Vaccination Assessment: Vaccine Date Result HCV N/A HBV N/A HIV 04/10/23 Negative Baseline Outcome: Number of admissions at [facility] related to OUD in last 6 months: 0 Dorina Baker, PharmD (she/her) Hand Coremaker Pharmacist [facility] Specialty Pharmacy 08/22/2023 Electronically signed by Dorina Baker [facility] at 08/22/2023 11:16 EDT documented in this encounter Plan of Treatment Not on file documented as of this encounter Visit Diagnoses Not on filedocumented in this encounter Historical Medications * This list may reflect changes made after this encounter. Vitamin A & Ergocalciferol,D2 , 1,250-135 unit capsule Take 1 Capsule by mouth daily. buprenorphine (BRIXADI) 24 mg/0.48 mL solution, extended rel syringe Inject 24 mg into the skin once a week. Daily Max: 24 mg traZODone (DESYREL) 50 mg tablet Take 1 Tablet by mouth at bedtime. 07/19/2023 hydrOXYzine (ATARAX) 25 mg tablet Take 1 Tablet by mouth every 6 hours as needed. 05/19/2023 cloNIDine HCL (CATAPRES) 0.1 mg tablet Take 1 Tablet by mouth every 8 hours as needed. 05/19/2023 added in this encounter
--- OUTSIDE RECORDS SUMMARY | 2024-03-29 22:34 | XMS_ITS | Encounter Summary ---
Author Organization [facility] Address [address] [place] [id number] Care Team Providers Care Tool Grinding Technician Name Role Phone Unavailable Primary Care Provider Unavailabl e Encounter Details Date Type Department Care Team (Late st Contact Info) Description 04/10/2023 Lab Requisition [facility] Pathology & Laboratory Medicine - [address] [address] Outr Resulting Lab, Provider Social History Tobacco Use Types Packs/Day Years Used Date Smoking Tobacco: Never Assessed Sex and Gender Information Value Date Recorded Sex Assigned at Not on file Legal Sex Male 16:17 EST Gender Identity Not on file Sexual Orientation Not on file documented as of this encounter Plan of Treatment Not on file documented as of this encounter Procedures Procedure Name Priority Date/Time Associated Diagnosis Comments SYPHILIS SEROLOGY Routine 04/10/2023 12: 50 EST HEPATITIS C AB W REFLEX TO HCV RNA BY PCR Routine 04/10/2023 12:50 EST documented in this encounter Results * SYPHILIS SEROLOGY (04/10/2023 12:50 EST) Syphilis Serology Negative Negative 04/11/2023 11:47 EST [facility] Blood VENOUS BLOOD / Unknown 04/10/2023 12:50 EST 04/10/2023 21:34 EST us Provider Outr Resulting Lab IMMUNOLOGY AND SEROL OGY ORDERABLES Final Result [facility] [address] [place] [address] * HEPATITIS C AB W REFLEX TO HCV RNA BY PCR (04/10/2023 12:50 EST) Hep C Antibody Negative Negative 04/10/2023 23:53 EST [facility] Blood VENOUS BLOOD / Unknown 04/10/2023 12:50 EST 04/10/2023 21:34 EST us Provider Outr Resulting Lab CHEMISTRY & BLOOD GA S ORDERABLES Final Result [facility] [address] [place] [address] documented in this encounter Visit Diagnoses Not on filedocumented in this encounter
--- OUTSIDE RECORDS SUMMARY | 2024-03-29 22:34 | XMS_ITS | Encounter Summary ---
Author Organization [facility] Address [address] [place] [address] Care Team Providers Care Drafter (Cad) Electronic Name Role Phone Unavailable Primary Care Provider Unavailabl e Encounter Details Date Type Department Care Team (Late st Contact Info) Description 04/10/2023 Lab Requisition [facility] Pathology & Laboratory Medicine - [address] [address] Outr Resulting Lab, Provider Social History Tobacco [...] Procedure Name Priority Date/Time Associated Diagnosis Comments CHLAMYDIA/N. GONORRHOEAE AMPLIFIED NUCLEIC ACID Routine 04/10/2023 12:50 EST documented in this encounter Results * CHLAMYDIA/N. GONORRHOEAE AMPLIFIED RNA (04/10/2023 12:50 EST) Neisseria gonorrhoeae Result Negative Negative 04/12/2023 14:34 EST [facility] Chlamydia trachomatis Result Negative Negative 04/12/2023 14:34 EST [facility] Urine URINE / Unknown 04/10/2023 1 2:50 EST 04/11/2023 10:05 EST us Provider Outr Resulting Lab MICROBIOLOGY - GENER AL ORDERABLES Final Result [facility] [address] [place] [address] documented in this encounter Visit Diagnoses Not on filedocumented in this encounter
--- OUTSIDE RECORDS SUMMARY | 2024-03-29 22:34 | XMS_ITS | Clinical Summary ---
Author Organization [facility] Address [address] [place] [address] Care Team Providers Care Print Producer Name Role Phone Unavailable Primary Care Provider Unavailabl e Allergies No known active allergies Medications cloNIDine HCL (CATAPRES) 0.1 mg tablet Take 1 Tablet by mouth every 8 hours as needed. 05/19/2023 Active hydrOXYzine (ATARAX) 25 mg tablet Take 1 Tablet by mouth every 6 hours as needed. 05/19/2023 Active traZODone (DESYREL) 50 mg tablet Take 1 Tablet by mouth at bedtime. 07/19/2023 Active buprenorphine (BRIXADI) 24 mg/0.48 mL solution, extended rel syringe Inject 24 mg into the skin once a week. Daily Max: 24 mg Active Vitamin A & Ergocalciferol, D2, 1,250-135 unit capsule Take 1 Capsule by mouth daily. Active Active Problems Problem Noted Date Diagnosed Date Opioid use disorder 08/22/2023 Social History Tobacco Use Types Packs/Day Years Used Date Smoking Tobacco: Never Assessed Sex and Gender Information Value Date Recorded Sex Assigned at Not on file Legal Sex Male 16:17 EST Gender Identity Not on file Sexual Orientation Not on file Plan of Treatment Health Maintenance Due Date Last Done Comments Hepatitis B Vaccine (1 of 3 - 19+ 3-dose series) 06/05 COVID-19 Vaccine ( season) 2023 Hepatitis C Screen Completed 04/10/2023 Procedures Procedure Name Priority Date/Time Associated Diagnosis Comments HEPATITIS C AB W REFLEX TO HCV RNA BY PCR Routine 04/10/2023 12:50 EST from Last 3 Months or Most Recently Relevant to Health Maintenance Results * HEPATITIS C AB W REFLEX TO HCV RNA BY PCR (04/10/2023 12:50 EST) Hep C Antibody Negative Negative 04/10/2023 23:53 EST [facility] Blood VENOUS BLOOD / Unknown 04/10/2023 12:50 EST 04/10/2023 21:34 EST us Provider Outr Resulting Lab CHEMISTRY & BLOOD GA S ORDERABLES Final Result [facility] [address] [place] [address] from Last 3 Months or Most Recently Relevant to Health Maintenance
--- OUTSIDE RECORDS SUMMARY | 2024-03-29 22:34 | XMS_ITS | Encounter Summary ---
Author Organization [facility] Address [address] [place] [address] Care Team Providers Care Voice And Data Technician Name Role Phone Unavailable Primary Care Provider Unavailabl e Encounter Details Date Type Department Care Team (Late st Contact Info) Description 04/10/2023 Lab Requisition [facility] Pathology & Laboratory Medicine - [address] [address] Outr Resulting Lab, Provider Social History Tobacco [...] Procedure Name Priority Date/Time Associated Diagnosis Comments HIV 1/2 ANTIGEN AND ANTIBODY, 4TH GENERATION Routine 04/10/2023 12:50 EST documented in this encounter Results * HIV 1/2 ANTIGEN AND ANTIBODY, 4TH GENERATION (04/10/2023 12:50 EST) HIV 1 and 2 Antibody/p24 Antigen, 4th Generation Negative Negative 04/10/2023 23:44 EST [facility] Comment:If acute HIV-1 infec tion is suspected in a high risk patient, submit plasma specimen for HIV-1 RNA quantitation test. Blood VENOUS BLOOD / Unknown 04/10/2023 12:50 EST 04/10/2023 21:39 EST Narrative [facility] - 04/10/2023 23:44 EST Fourth Generation assay performed on the Siemens Centaur XPT. us Provider Outr Resulting Lab IMMUNOLOGY AND SEROL OGY ORDERABLES Final Result [facility] [address] [place] [address] documented in this encounter Visit Diagnoses Not on filedocumented in this encounter
--- OUTSIDE RECORDS SUMMARY | 2024-03-29 22:34 | XMS_ITS | Encounter Summary ---
Author Organization [facility] Address [address] [place] [address] Care Team Providers Care Director Of Revenue Name Role Phone Unavailable Primary Care Provider Unavailabl e Encounter Details Date Type Department Care Team (Late st Contact Info) Description 09/04/2023 Specialty Pharmacy [facility] [address] [place] [address] Dorina Baker RPH Social History Tobacco Use Types Packs/Day Years [...]
--- OUTSIDE RECORDS SUMMARY | 2024-03-29 22:34 | XMS_ITS | Referral Summary ---
Author Organization [facility] Address [address] [place] [address] Care Team Providers Care Machine Installer Name Role Phone Unavailable Primary Care Provider [...] Orientation Not on file Plan of Treatment Not on file Procedures Procedure Name Priority Date/Time Associated Diagnosis Comments HEPATITIS C AB W REFLEX TO HCV RNA BY PCR Routine 04/10/2023 12:50 EST from Last 3 Months or Most Recently Relevant to Health Maintenance Results * HEPATITIS C AB W REFLEX TO HCV RNA BY PCR (04/10/2023 12:50 EST) Hep C Antibody Negative Negative 04/10/2023 23:53 EST [facility] Blood VENOUS BLOOD / Unknown 04/10/2023 12:50 EST 04/10/2023 21:34 EST us Provider Outr Resulting Lab CHEMISTRY & BLOOD GA S ORDERABLES Final Result [facility] [address] [place] [address] from Last 3 Months or Most Recently Relevant to Health Maintenance
--- OUTSIDE RECORDS SUMMARY | 2024-03-29 22:34 | XMS_ITS ---
Author Organization [facility] Address [address] [place] [address] Care Team Providers Care Retort Loader Name Role Phone Unavailable Primary Care Provider Unavailabl e Addiction Medicine Status:Discharged (Closed) Start date:08/22/2023 Enrollment date:08/22/2023 End date:09/22/2023 Close reason:Therapy discontinued - patient choice Linked medications:buprenorphine (Active) Linked problems:Opioid use disorder (Active) Overview [facility]: [phone] (DANI Justin) Continued Care and Services Coordination
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
[2024-03-30] MEDS: OLANZapine 5 MG TAB PO (05:05)
[2024-03-30 08:20] VITALS: BP 186/90; PULSE 103; RESP 18; TEMP 36.5; O2SAT 99
[2024-03-30 09:18] VITALS: BP 164/72; PULSE 107; RESP 18; O2SAT 99
--- NOTE | 2024-03-30 16:07 | PDOC.MHPN2 ---
Date of service: 03/30/24 Time of Service: 10:45 PHQ-9 Over the last 2 weeks, how often have you been bothered by any of the following problems? 1. Little interest or pleasure in doing things: not at all 2. Feeling down, depressed, or hopeless: several days 3. Trouble falling or staying asleep, or sleeping too much: not at all 4. Feeling tired or having little energy: several days 5. Poor appetite or overeating: several days 6. Feeling bad about yourself - or that you are a failure or have let yourself and your family down: several days 7. Trouble concentrating on things, such as reading the newspaper or watching television: several days 8. Moving or speaking so slowly that other people could have noticed? - Or the opposite - being so fidgety or restless that you have been moving around a lot more than usual: not at all 9. Thoughts that you would be better off or of hurting yourself in some way: not at all Total score: 5 Source: Developed by Drs. Alexis Patten, Khushbu Thapa, Adrian Norris and colleagues, with an educational ambrose from [employer]. Suicide Severity Rate CSSRS Have you wished you were or wished you could go to sleep and not wake up?: No Have you actually had any thoughts of killing yourself?: No CSSRS2 Have you been thinking about how you might do this?: No Have you had these thoughts and had some intention of acting on them?: No Have you started to work out or worked out the details of how to kill yourself? Do you intend to carry out this plan?: No CSSRS3 Have you ever done anything, started to do anything or prepared to do anything to end your life?: Yes CSSRS4 Was this within the past three months?: No Screening Score Total Score: 2 Screening: Positive Mental Health Emergency Note Release [facility] release signed:: Yes Reason for Visit He was experiencing visual hallucinations, lack of sleep, and fighting demons In the last 2 weeks has the pt presented for ES prior to today?: No Client Information Client is: New Well Housed: No,status: Homeless Non Suicidal Self Injury Current: No History: No Safety Risk/Harm to Self or Others Current Ideation to Harm Self or Others: No Risk: Does risk to harm exist?: No Risk: N/A Duty to warn indicated: No Asssessment/Mental Status Appearance: Unremarkable Attitude: Cooperative and Guarded Behavior: Unremarkable Speech: Normal and Other Affect: Cogruent with mood Mood: Sad, Stressed, Depressed and Anxious Thought process: Flight of ideas Hallucinations: yes, Visual Delusions: No Attention: Unremarkable Perception: Not impaired Orientation: Fully orientated Memory: Intact Insight: Poor Judgement: Poor Neurovegetative Symptoms Sleep: Increase Appetitie: Increase Interests: No change Energy: No change Libido: Not applicable Substance Use: Other Drug Issues: Other Do you use nicotine?: No Have you used substances in the last 7 days?: No Additional Issues: Assaultive/Threatening Behavior: No Medical Concerns: No Client engaged in active self harm w/weapon: No Threatening to run away: No Child reported abuse/neglect: No Voluntarily presenting for services: Yes Domestic violence is a concern: No Extreme Psychosis or extreme behavior is present: No Impression patient suffering from lack of sleep, slight psychosis, and paranoia Resources [facility] reviewed and given:: [phone] and [facility] Plan/Disposition Recommended Disposition: Hospitalization facilities contacted. Plan: Patient to remain at [facility] until a bed is available for inpatient mental health treatment Facilities contacted if Applicable [facility] Not accepted, No bed available [facility] Not accepted, No bed available, [facility] Not accepted, No bed available [facility] Not accepted, No bed available Reports/communication Outcome discussed with: ED/Personnel
--- NOTE | 2024-03-30 16:43 | ED.PROG_ITS ---
Date of service: 03/30/24 Time of Service: 16:43 Medical Decision Making Patient was signed out to me by my colleague. Patient is voluntary. He has been stable throughout his time here. He did have mild soreness on his knee which was evaluated which shows no signs of significant injury aside from mild infrapatellar abrasion. Patient did take Zyprexa last night. [facility]. I spoke with Dr. Leyva, who accepts the patient for transfer. I have extensively reviewed the treatment plan with the patient. I have addressed all patient concerns at this time. I have also discussed the plan with the admitting physician and they agree with the current assessment and plan and have agreed to assume responsibility for the patient. All parties demonstrate verbal understanding and agreement with our assessment and plan at this time. The documentation in this chart was dictated using YelloYello dictation software. Please excuse any dictation errors. Quality:SDOH Health Related Social Needs: No Data to Display Discharge Plan Disposition Patient Disposition: Psychiatric Hospital/Unit Specific Psychiatric Facility: [facility] Condition: Good Discharge Details Chief Complaint: PsychEval Clinical Impression: Belinda Primary Care Provider: Unknown,Unknown ED Provider: Raudel Olmstead Home Meds and New Rx's Prescriptions: No Action No Known Home Meds
[2024-03-30] MEDS: Ibuprofen 800 MG TAB PO (16:48)
--- NOTE | 2024-03-30 17:55 | CMSP_ITS ---
Date of service: 03/30/24 Time of Service: 17:55 Care Management Safety Plan Status Status: Voluntary Reason for Wait Reason for Wait: Inpatient Admission Safety Plan Safety Plan: VOLUNTARY FOR INPATIENT PSYCHIATRIC STABILIZATION.? Patient is appropriate in all interactions since arriving at [facility]; Pt has demonstrated appropriate coping and communication skills, has articulated his or her needs and concerns and is fully engaged during staff interactions. Safety plan has been established with patient, and care team, to adhere to patient goals, identify restrictions based on behavioral status, address nutrition, and determine allowed personal belongings, tools for hygiene and personal care. Determine level of activity including ambulation, level of superv ision, visitors, and determine privileges based on behaviors and level of engagement by pt. VOLUNTARY SAFETY PLAN: 1. Will remain on suicide precautions, in paper clothes 2. Will remain in Zone B under direct supervision of one-on-one staff at all times provided by [employer]; BRIAN, LINOLEUM FLOOR LAYER cigarette filter inspector. 3. May have paper cups, plates, finger foods as well as a cardboard spoon with which to eat meals. 4. Follow [facility] Management of the Admitted Behavioral Health Patient policy. 5. Shower available in Zone B without restriction. 6. Personal belongings-soft items permitted at RN discretion. 7. Visitors-none at this time. 8. Activities: soft cart items approved per RN discretion. 9.? Bathroom available in Zone B without restriction. 10. Phone: limited to [facility] cordless phone at RN discretion. Due to VOLUNTARY status, if patient wishes to leave [facility], staff will contact [facility] Crisis Screener ([phone]) and Eye Physician ([phone]) as soon as possible. In the event of elopement, notify [place] [facility] Police ([phone]). Patient is currently voluntarily at [facility] and seeking inpatient admission when a bed becomes available. [facility] Frontline Industrial Accountant will continue seeking placement. Please contact the Eye Physician ([phone]) and [facility] Industrial Accountant ([phone]) for any needed changes in the Safety Plan. Safety plan has been provided to interdepartmental care team.
--- NOTE | 2024-03-30 17:55 | PDOC.CMSAFE ---
Date of service: 03/30/24 Time of Service: 17:55 Care Management Safety Plan Status Status: Voluntary Reason for Wait Reason for Wait: Inpatient Admission Safety Plan Safety Plan: VOLUNTARY FOR INPATIENT PSYCHIATRIC STABILIZATION.? Patient is appropriate in all interactions since arriving at [facility]; Pt has demonstrated appropriate coping and communication skills, has articulated his or her needs and concerns and is fully engaged during staff interactions. Safety plan has been established with patient, and care team, to adhere to patient goals, identify restrictions based on behavioral status, address nutrition, and determine allowed personal belongings, tools for hygiene and personal care. Determine level of activity including ambulation, level of supervision, visitors, and determine privileges based on behaviors and level of engagement by pt. VOLUNTARY SAFETY PLAN: 1. Will remain on suicide precautions, in paper clothes 2. Will remain in Zone B under direct supervision of one-on-one staff at all times provided by [employer]; BRIAN, PLANT SAFETY ENGINEER bulk system operator. 3. May have paper cups, plates, finger foods as well as a cardboard spoon with which to eat meals. 4. Follow [facility] Management of the Admitted Behavioral Health Patient policy. 5. Shower available in Zone B without restriction. 6. Personal belongings-soft items permitted at RN discretion. 7. Visitors-none at this time. 8. Activities: soft cart items approved per RN discretion. 9.? Bathroom available in Zone B without restriction. 10. Phone: limited to [facility] cordless phone at RN discretion. Due to VOLUNTARY status, if patient wishes to leave [facility], staff will contact [facility] Crisis Screener ([phone]) and Sap Business Analyst ([phone]) as soon as possible. In the event of elopement, notify [facility] Police ([phone]). Patient is currently voluntarily at [facility] and seeking inpatient admission when a bed becomes available. [facility] Frontline Land Law Examiner will continue seeking placement. Please contact the Sap Business Analyst ([phone]) and [facility] Land Law Examiner ([phone]) for any needed changes in the Safety Plan. Safety plan has been provided to interdepartmental care team.
--- NOTE | 2024-03-30 17:56 | CMPROGNOTE_ITS ---
Date of service: 03/30/24 Time of Service: 17:56 Care Management Progress Note Progress Note Text Progress Note Text: CM met with staff to discuss Fernando's plan of care. Per RN, Fernando has been appropriate, although tangential in conversation. He has been walking around the unit, keeping himself busy. When CM was meeting with his RN, he asked for directions for the game spades. Per [facility], he meets criteria for inpatient psychiatric stabilization, and he is voluntarily seeking support. [facility] accepted Fernando for admission this afternoon; transport was coordinated with [facility]. He is agreeable to this plan. Safety plan in place for the remainder of his stay, until he is transferred to [facility]. CM will continue to follow. Social Determinants of Health Screening Will the Patient Participate in the Screening?: Unable to obtain
== END 2024-03-30 18:26 ==
PROVIDERS: Emergency Provider Student in an Organized Health Care Education/Training Program
DX: R44.3 Hallucinations, unspecified; F30.9 Manic episode, unspecified; Z59.00 Homelessness unspecified
CPT/HCPCS: 00123; 96127; 99285

== ENCOUNTER 2025-02-12 13:42 | Emergency (ER) | payer MEDICAID, SELFPAY ==
[2025-02-12 13:53] VITALS: BP 170/82; PULSE 81; RESP 16; TEMP 36.7; O2SAT 96
--- NOTE | 2025-02-12 14:04 | NUR.NOTE ---
Nursing Note: pt says I pray everyday I dont wake up, he says its only going to get worse from here
[2025-02-12 14:17] LABS: Abs Immature Grans 0.04 10^3/uL (0.0-0.06); HCT 41.6 % (40.0-50.0); HGB 14.1 g/dL (13.5-17.5); Immature Grans % 0.4 %; MCH 30.3 pg (27.0-33.0); MCHC 33.9 % (32.0-36.0); MCV 90 fL (80-95); MPV 9.5 fL (8.0-11.0); Platelet Count 231 10^3/uL (130-400); RBC 4.65 10^6/uL (4.36-5.78); RDW 12.1 % (11.8-14.1); RDW-SD 39.8 fL; WBC 9.36 10^3/uL (4.4-10.8)
[2025-02-12 14:34] LABS: ALT 20 U/L (10-49); AST 22 U/L (<34); Albumin 4.6 g/dL (3.4-5.0); Alkaline Phosphatase 85 U/L (46-116); Anion Gap 10.4 mmol/L (3-11); BUN 15 mg/dL (9-23); Bilirubin, Total 0.60 mg/dL (0.2-1.2); CO2 28.6 mmol/L (20.0-31.0); Calcium 9.4 mg/dL (8.3-10.6); Chloride 104 mmol/L (98-107); Glucose 135 mg/dL (74-106); Potassium 3.9 mmol/L (3.5-5.1); Sodium 143 mmol/L (136-145); Total Protein 7.3 g/dL (5.7-8.2)
[2025-02-12 14:49] LABS: Glucose Negative (Negative)
[2025-02-12 15:04] LABS: Cannabinoids THC Negative (Negative)
--- NOTE | 2025-02-12 15:09 | W.ED.GENAD ---
Discharge Plan Disposition Patient Disposition: Home Condition: Stable Discharge Details Clinical Impression: Suicidal ideation, Schizoaffective disorder Primary Care Provider: Unknown,Unknown ED Provider: Candelaria Romo Home Meds and New Rx's Prescriptions: No Action No Known Home Meds Discharge Instructions Instructions: Schizoaffective Disorder (DC) Additional Instructions: You were seen in the emergency department today for evaluation of suicidal ideation. In our department you had a full physical examination performed, and are medically cleared. You met with a member of our crisis team, and are being transferred to [place] for ongoing psychiatric care. Please follow all recommendations by your mental health provider, and follow-up with your primary care providers upon discharge. Thank you for allowing us to be part of your care. Stand Alone Forms: Portal Information Discharge Data Discharge Date/Time-TO BE ENTERED AT DEPARTURE: 02/16/25 14:35 HPI General Mode of arrival: ambulatory. Date/Time Provider Initiated Documentation: 02/12/25 14:00. Limitations to Documentation: no limitations. Information obtained by: patient and old records reviewed. HPI Narrative: This is a 39-year-old male patient with a past medical history significant for schizoaffective disorder, alcohol use disorder in remission, presenting voluntarily for suicidal ideation. The patient reports that he is too sensitive, and reacts to things that people say that he should not. He reports that he has felt suicidal and depressed because his daughter is not with him, but states that he has no intention to actually hurt or kill himself. He states that he will not disclose any methods that he considers or plans that he has because he does not intend to act on them. He reports that hebecame angry when he was kicked out of the long term, and states that he presented here today. He does not have outpatient mental health supports, states that his plan would either be to stay here voluntarily overnight and safety plan home tomorrow, he states he has a long term off the grid that he plans to weather the winter and, states that he could also consider going down to [place], as he has the ability to stay in a hotel and get a job down there. The patient reports to this provider that he occasionally smokes nicotine, is 30 days sober from alcohol, and does not use illicit substances. He reports no other major medical history, states he does not take any medications and does not believe in taking them. He reports frustration that his experiences with demons and evil that came to him, when he reaffirmed his baylee often gets him labeled as having psychosis. He states that he just needs to stop being weak. He states that he does get angry sometimes, but would only ever react verbally and reports no intention to act out physically on his anger. Related Data Home Medications Medication Instructions Recorded Confirmed Unknown [No Known Home Meds] 05/25/20 03/29/24 Allergies Allergy/AdvReac Type Severity Reaction Status Date / Time No Known Allergies Allergy Verified 03/29/24 04:11 General Stated Complaint: PsychEval APURVA: 2 Exam Narrative Exam Narrative: Gen: Awake and alert, in no apparent distress HEENT: Non-icteric sclera Neck: Supple Lungs: No apparent respiratory distress, normal respiratory effort. CV: Appears well perfused Abdomen: Non-distended MSK: Moves 4 extremities without apparent limitation in ROM Skin: Visualized skin without rashes, cyanosis. Neuro: Normal Gait, no obvious focal deficits or facial asymmetry. Speaks in full, clear sentences. Psych: The patient demonstrates forward thinking, very slightly tangential speech pattern and thought process. Endorses suicidal ideation but not intent, denies homicidal ideation. Course Vital Signs Vital signs: Vital Signs Temperature 36.7 C 02/12/25 13:53 Pulse 81 02/12/25 13:53 Respiratory Rate 16 02/12/25 13:53 Blood Pressure 170/82 H 02/12/25 13:53 Pulse Oximetry 96 02/12/25 13:53 Temperature 36.7 C 02/12/25 13:53 Pulse 81 02/12/25 13:53 Respiratory Rate 16 02/12/25 13:53 Blood Pressure 170/82 H 02/12/25 13:53 Pulse Oximetry 96 02/12/25 13:53 Oxygen Delivery Method Room Air 02/12/25 13:53 Oxygen Flow Rate 0 02/12/25 13:53 Lab/Test Results Lab/Test Results: Laboratory Tests Range/Units 02/12/25 02/12/25 14:05 14:18 WBC (4.4-10.8) 10^3/uL 9.36 RBC (4.36-5.78) 10^6/uL 4.65 Hgb (13.5-17.5) g/dL 14.1 Hct (40.0-50.0) % 41.6 MCV (80-95) fL 90 MCH (27.0-33.0) pg 30.3 MCHC (32.0-36.0) % 33.9 RDW (11.8-14.1) % 12.1 Plt Count (130-400) 10^3/uL 231 MPV (8.0-11.0) fL 9.5 Immature Gran % % 0.4 Neutrophils % % 69.4 Lymphocytes % % 21.3 Monocytes % % 7.6 Eosinophils % % 0.7 Basophils % % 0.6 Nucleated RBC % (0.0-0.3) % 0.0 Absolute Neutrophils (1.2-6.7) 10^3/uL 6.49 Absolute Lymphocytes (1.2-3.4) 10^3/uL 1.99 Absolute Monocytes (0.1-0.8) 10^3/uL 0.71 Absolute Eosinophils (0.0-0.7) 10^3/uL 0.07 Absolute Basophils (0.0-0.2) 10^3/uL 0.06 Sodium (136-145) mmol/L 143 Potassium (3.5-5.1) mmol/L 3.9 Chloride (98-107) mmol/L 104 Carbon Dioxide (20.0-31.0) mmol/L 28.6 Anion Gap (3-11) mmol/L 10.4 BUN (9-23) mg/dL 15 Creatinine (0.73-1.18) mg/dL 0.7 L Est GFR (CKD-EPI 2020) (mL/min/1.73m2) 119.81 Glucose (74-106) mg/dL 135 H Calcium (8.3-10.6) mg/dL 9.4 Total Bilirubin (0.2-1.2) mg/dL 0.60 AST (<34) U/L 22 ALT (10-49) U/L 20 Alkaline Phosphatase (46-116) U/L 85 Total Protein (5.7-8.2) g/dL 7.3 Albumin (3.4-5.0) g/dL 4.6 Urine Color (Yellow) Yellow Urine Clarity (Clear) Clear Urine pH (5-8) 6.0 Ur Specific [place] (1.005-1.025) <= 1.005 Urine Protein (Neg-Trace) mg/dL Negative Urine Ketones (Negative) mg/dL Negative Urine Blood (Negative) Negative Urine Nitrite (Negative) Negative Urine Bilirubin (Negative) Negative Urine Urobilinogen (Up to 0.2) mg/dL 0.2 Ur Leukocyte Esterase (Negative) Negative Urine Glucose (Negative) mg/dL Negative Urine Opiates Screen (Negative) Negative Urine Methadone Screen (Negative) Negative Ur Barbiturates Screen (Negative) Negative Ur Amphetamines Screen (Negative) Negative U Benzodiazepines Scrn (Negative) Negative Urine Cocaine Screen (Negative) Negative U Cannabinoids Screen (Negative) Negative Ethyl Alcohol (<3) mg/dL < 3.0 Medical Decision Making This is a 39-year-old male patient presenting for evaluation of suicidal ideation. Differential includes but is not limited to primary psychiatric disorder, I certainly considered substance use and intoxication, withdrawal syndromes, though this patient is not experiencing symptoms concerning for this etiology. He has no medical complaints at this time and I have a low concern for organic etiology of his symptoms today. We obtained medical screening labs, which I reviewed. There is no leukocytosis, anemia, or thrombocytopenia. Chemistry panel reveals no electrolyte derangements, kidney or liver injury. Urinalysis noninfectious, UDS negative, and alcohol level is undetectable. The patient met medical clearance at this time and [facility] was consulted for evaluation. At this time the patient is voluntary. I was able to discuss the case with the [facility] worker who evaluated him at the recovery center, they report that at the time of their evaluation the patient was indicating much more intent to kill himself, citing a plan to either spend the winter in a nonheated long term and let nature take its course, versus grinding up a large number of granados pits and ingested them. They stated that the patient was quite amenable to coming to the hospital for evaluation, but do feel that he would warrant reevaluation and potential EEG if he was to try to leave. Given that this patient has had a decrease in his suicidal intent between the 2 evaluations, as well as his recent lack of medications, I feel a telepsychiatry evaluation is appropriate. This was ordered. The patient was admitted to ED psych obs after medical clearance. The patient was signed out to the oncoming provider prior to final disposition. He remained hemodynamically appropriate, calm, and cooperative while under my care. Candelaria Romo MD Quality:SDOH Health Related Social Needs: Health related social needs lonely/isolated Health related social needs details Seeking placement to treat SI. PFSH All Active Problems (Updated 02/12/25 @ 22:56 by Candelaria Romo MD) Schizoaffective disorder (Acute) Suicidal ideation (Acute) Alcohol abuse (Chronic) Elevated ALT measurement (Acute) Elevated blood pressure reading (Acute) Abdominal pain (Acute) Social History Smoking/Tobacco Use Status: Former Tobacco Use Smoking risk assessment performed?: Yes Alcohol Intake: current Alcohol Intake frequency: a few times a week Alcohol type: hard liquor Drug use: Occasionally Substance use type: former substance user and marijuana Details: Pt states he uses marijuana edibles occasionally 03/27/24 Pt denies ETOH use x approx. 3 weeks 03/27/24 Do you feel safe at home: Yes Do you feel safe in your relationship?: Yes
--- NOTE | 2025-02-12 19:38 | CMPROGNOTE_ITS ---
Date of service: 02/12/25 Time of Service: 19:39 Care Management Progress Note Progress Note Text Progress Note Text: Per report, Fernando presented to the ED today after being assessed by [facility] in the community. Per report, he was recently kicked out of the senior living, and he reportedly has no contact with his daughter, which contributes to his suicidal ideation. He is currently voluntary, seeking inpatient psychiatric treatment. Referrals will be sent by [facility]. Safety plan in place; CM will continue to follow. Social Determinants of Health Screening Social Determinants of health last assessed in clinic: 02/12/25 Will the Patient Participate in the Screening?: Yes Do you worry about having a steady place to live?: no Problems where you live: no known problems In the past 12 months, have you had to go without electric, gas, oil or water in your home?: no 1. Within the past 12 months, we worried whether our food would run out before we got money to buy more.: Don't know/refused 2. Within the past 12 months, the food we bought just didn't last and we didn't have money to get more.: Don't know/refused Has lack of transportation kept you from medical appointments or from doing things needed for daily living?: no Has anyone in your life made you feel unsafe or unsupported?: no How hard is it for you to pay for the very basics like food, housing, medical care, and heating? Would you say it is:: Not hard at all Do you want help finding or keeping work or a job?: I do not need or want help If for any reason you need help with day-to-day activities such as bathing, preparing meals, shopping, managing finances, etc., do you get the help you need?: I don’t need any help How often do you feel lonely or isolated from those around you?: Often Do you speak a language other than Estonian at home?: No Does the patient want assistance with any of the above?: Yes Health Related Social Needs Health related social needs: feeling lonely/isolated (Z60.8) Health related social needs details: Seeking placement to treat SI.
--- NOTE | 2025-02-12 19:38 | CMSP_ITS ---
Date of service: 02/12/25 Time of Service: 19:38 Care Management Safety Plan Status Status: Voluntary Reason for Wait Reason for Wait: Inpatient Admission Safety Plan Safety Plan: VOLUNTARY FOR INPATIENT PSYCHIATRIC STABILIZATION. Patient is appropriate in all interactions since arriving at [facility]; Pt has demonstrated appropriate coping and communication skills, has articulated his or her needs and concerns and is fully engaged during staff interactions. Safety plan has been established with patient, and care team, to adhere to patient goals, identify restrictions based on behavioral status, address nutrition, and determine allowed personal belongings, tools for hygiene and personal care. Determine level of activity including ambulation, level of superv ision, visitors, and determine privileges based on behaviors and level of engagement by pt. VOLUNTARY SAFETY PLAN: 1. Will remain on suicide precautions, in paper clothes 2. Will remain in Zone B under direct supervision of one-on-one staff at all times provided by [employer]; BRIAN, COMPUTATIONAL THEORY SCIENTIST salt plant operator. 3. May have paper cups, plates, finger foods as well as a cardboard spoon with which to eat meals. 4. Follow [facility] Management of the Admitted Behavioral Health Patient policy. 5. Shower available in Zone B without restriction. 6. Personal belongings-soft items permitted at RN discretion. 7. Visitors- supportive visitors, at RN discretion. 8. Activities: soft cart items, hospital tablets (Netflix/[place]+/music) approved per RN discretion. 9. Bathroom available in Zone B without restriction. 10. Phone: limited to [facility] cordless phone at RN discretion. Due to VOLUNTARY status, if patient wishes to leave [facility], staff will contact [facility] Crisis Screener ([phone]) and Decaler ([phone]) as soon as possible. In the event of elopement, notify [facility] Police ([phone]). Patient is currently voluntarily at [facility] and seeking inpatient admission when a bed becomes available. [facility] Frontline Ophthalmic Surgeon will continue seeking placement. Please contact the Decaler ([phone]) and [facility] Ophthalmic Surgeon ([phone]) for any needed changes in the Safety Plan. Safety plan has been provided to interdepartmental care team.
--- NOTE | 2025-02-12 19:38 | PDOC.CMSAFE ---
Date of service: 02/12/25 Time of Service: 19:38 Care Management Safety Plan Status Status: Voluntary Reason for Wait Reason for Wait: Inpatient Admission Safety Plan Safety Plan: VOLUNTARY FOR INPATIENT PSYCHIATRIC STABILIZATION. Patient is appropriate in all interactions since arriving at [facility]; Pt has demonstrated appropriate coping and communication skills, has articulated his or her needs and concerns and is fully engaged during staff interactions. Safety plan has been established with patient, and care team, to adhere to patient goals, identify restrictions based on behavioral status, address nutrition, and determine allowed personal belongings, tools for hygiene and personal care. Determine level of activity including ambulation, level of supervision, visitors, and determine privileges based on behaviors and level of engagement by pt. VOLUNTARY SAFETY PLAN: 1. Will remain on suicide precautions, in paper clothes 2. Will remain in Zone B under direct supervision of one-on-one staff at all times provided by [employer]; BRIAN, DRAWING MACHINE OPERATOR charge machine operator. 3. May have paper cups, plates, finger foods as well as a cardboard spoon with which to eat meals. 4. Follow [facility] Management of the Admitted Behavioral Health Patient policy. 5. Shower available in Zone B without restriction. 6. Personal belongings-soft items permitted at RN discretion. 7. Visitors- supportive visitors, at RN discretion. 8. Activities: soft cart items, hospital tablets (Netflix/[place]+/music) approved per RN discretion. 9. Bathroom available in Zone B without restriction. 10. Phone: limited to [facility] cordless phone at RN discretion. Due to VOLUNTARY status, if patient wishes to leave [facility], staff will contact [facility] Crisis Screener ([phone]) and Front End Wheel Loader Operator ([phone]) as soon as possible. In the event of elopement, notify [facility] Police ([phone]). Patient is currently voluntarily at [facility] and seeking inpatient admission when a bed becomes available. [facility] Frontline Supervisor Cell Operation will continue seeking placement. Please contact the Front End Wheel Loader Operator ([phone]) and [facility] Supervisor Cell Operation ([phone]) for any needed changes in the Safety Plan. Safety plan has been provided to interdepartmental care team.
--- NOTE | 2025-02-12 20:40 | PDOC.MHCN ---
Date of service: 02/12/25 Time of Service: 12:25 Mental Health Emergency Note Release [facility] release signed:: Yes Reason for Visit Suicidal Ideation/Delusional Thoughts In the last 2 weeks has the pt presented for ES prior to today?: No Client Information Client is: Adult Outpatient Well Housed: No,status: Homeless Non Suicidal Self Injury Current: No History: No Safety Risk/Harm to Self or Others Current Ideation to Harm Self or Others: Yes to self. (Stated several times during assessment I'm just going to kill myself. Communicated multiple plans and intent.) Intent: yes, has intent. Plan: yes,has a plan. CALM/Risk Level Does risk to harm exist?: yes. Access to means: Yes. Details: Unable to assess due to client's disorganized thought process. . Counseling provided: No Risk: High Risk Duty to warn indicated: No Asssessment/Mental Status Appearance: Disheveled and Poor hygiene Attitude: Guarded Behavior: Unremarkable Speech: Normal Affect: Blunted and Constricted Mood: Stressed Thought process: Poverty of content Hallucinations: No evidence Delusions: No Attention: Unremarkable Perception: Not impaired Orientation: Fully orientated Memory: Intact Insight: Poor Judgement: Poor Neurovegetative Symptoms Sleep: Decrease Appetitie: Decrease Interests: Decrease Energy: Decrease Libido: Not applicable Substance Use: Do you use nicotine?: No Additional Issues: Assaultive/Threatening Behavior: Yes Medical Concerns: No Client engaged in active self harm w/weapon: No Threatening to run away: No Child reported abuse/neglect: No Voluntarily presenting for services: Yes Domestic violence is a concern: No Extreme Psychosis or extreme behavior is present: Yes Impression Client presented for Mobile Crisis at [facility] after being asked to leave the [facility] this morning. Client appears disheveled and has poor hygiene. He presents with poor eye contact and flat affect. He answers a number of our questions by stating nothing matters. I'm just going to kill myself. Client identifies that he doesn't trust people in general, especially medical people, because he has been lied to. His supports, who were present during assessment, report that the client is quite paranoid. It is also notable that this decompensation happens in the context of his biological daughter's birthday yesterday. The client does not have contact with his children. Client expresses a number of paranoid and hyper-anglican delusions. He states that because he is a good and Godly man, that he is also constantly followed by bad people and demons. Client was asked to leave [facility] this morning after becoming verbally aggressive with guests, which he identified as being part of these bad people. He states that no matter where he goes he is followed by these bad people, and that because nothing he does matters I'll just go kill myself. Client stated that he is experiencing suicidal ideation, intent, and his plan would be to either go into his tent and let the cold kill him or that he would grind granados pits down and consume them as a form of cyanide. Due to the high risk of client harming himself or others, it was recommended that he seek inpatient hospitalization. Despite his reply, Nothing I do matters, I'll just end up killing myself, he did agree to go to the Emergency Room. If the client decides that he wants to leave the hospital [facility] should be notified and an EE considered due to the client's high risk to harm himself or others. Plan/Disposition Recommended Disposition: Hospitalization (Referrals have been made to all appropriate inpatient psychiatric facilities) facilities contacted. Plan: Client will wait on Zone B of [facility] until appropriate inpatient psychiatric placement is secured. Facilities contacted if Applicable [facility] Not accepted, (Referral under consideration) No bed available [facility] Not accepted, (Referral under consideration) [facility], ([facility]erral under consideration) No bed available Reports/communication Outcome discussed with: ED/Personnel
--- NOTE | 2025-02-13 00:28 | W.TELEPSYCH ---
Date of service: 02/13/25 Time of Service: 00:28 Summary Note PSYCHIATRY PHONE NOTE Date/Time: 02/12/25, 11:28 PM ASSISTANT PROFESSOR OF RELIGION Name: Fernando Molina : 1985 Location of the Patient: [facility] Ed Consulting Array Clinician: Benigno Montalvo MD Discussed plan with onsite truck driver teamster: Dr Jackson 39 yo male, patient presented to the emergency department 02/12/2025 with schizoaffective disorder as well as a past history of alcohol use. He came in for suicidal ideation. Says he has felt suicidal and depressed because his daughter is not with him but has no intent actually act on these thoughts and denies intent to kill himself. He unfortunately will not disclose any methods that he has been considering, his rationale being that he does not intend to act on them. He also says he had been in a [facility]p and got angry when he was kicked out so he came here to the ER. He says he does not take any medications and he does not believe in them. He has some baylee beliefs and demons and even a little that came to him at 1 point in his life and often gets them labeled as being psychotic, which frustrates him. He has no current mental health treatment. [facility] evaluated him at the recovery center and at the time of their evaluation he was indicating much more acute intent to kill himself saying he planned to either spend the winter in a nonheated usp and let nature take its course or killing himself by grinding up a large number of granados pits and ingesting them. Review of their note does show that he frequently answered with that nothing matters, I am just going to kill myself. He presented as paranoid and guarded. He apparently was asked to leave the usp this morning after becoming verbally aggressive with other consumers, which he identified as being part of the bad people that he feels following him. He stated that no matter where he goes he is followed by these bad people he did voluntarily go to the emergency room for further assessment. They recommended that if he wants to leave the hospital [facility] should be notified and EE considered Attempted to see patient by video and he is immediately argumentative and verbally abusive. He is perseverating on the fact that it is last and is belligerent, refusing to have a productive conversation. I attempted to engage the patient unsuccessfully and had to terminate the interview due to his behavior toward the examiner. Consult will be paused. Please notify [facility] center when patient is willing to be cooperative for assessment Benigno Montalvo MD Psychiatrist, [facility]
--- NOTE | 2025-02-13 07:10 | CMSP_ITS ---
Date of service: 02/13/25 Time of Service: 08:35 Care Management Safety Plan Status Status: Voluntary Reason for Wait Reason for Wait: Inpatient Admission Safety Plan Safety Plan: VOLUNTARY FOR INPATIENT PSYCHIATRIC STABILIZATION. Patient is appropriate in all interactions since arriving at [facility]; Pt has demonstrated appropriate coping and communication skills, has articulated his or her needs and concerns and is fully engaged during staff interactions. Safety plan has been established with patient, and care team, to adhere to patient goals, identify restrictions based on behavioral status, address nutrition, and determine allowed personal belongings, tools for hygiene and personal care. Determine level of activity including ambulation, level of superv ision, visitors, and determine privileges based on behaviors and level of engagement by pt. VOLUNTARY SAFETY PLAN: 1. Will remain on suicide precautions, in paper clothes 2. Will remain in Zone B under direct supervision of one-on-one staff at all times provided by [employer]; BRIAN, FILLING MIXER patient care coordinator. 3. May have paper cups, plates, finger foods as well as a cardboard spoon with which to eat meals. 4. Follow [facility] Management of the Admitted Behavioral Health Patient policy. 5. Shower available in Zone B without restriction. 6. Personal belongings- squishy Emigdio, the Bible and soft items permitted at RN discretion. 7. Visitors- supportive visitors, at RN discretion. 8. Activities: soft cart items, hospital tablets (Netflix/[place]+/music) approved per RN discretion. 9. Bathroom available in Zone B without restriction. 10. Phone: limited to [facility] cordless phone at RN discretion. Due to VOLUNTARY status, if patient wishes to leave [facility], staff will contact [facility] Crisis Screener ([phone]) and Milling Planer Operator ([phone]) as soon as possible. In the event of elopement, notify [place] [employer] ([phone]). Patient is currently voluntarily at [facility] and seeking inpatient admission when a bed becomes available. [facility] Frontline Manager Sports will continue seeking placement. Please contact the Milling Planer Operator ([phone]) and [facility] Manager Sports ([phone]) for any needed changes in the Safety Plan. Safety plan has been provided to interdepartmental care team.
--- NOTE | 2025-02-13 07:10 | CMPROGNOTE_ITS ---
Date of service: 02/13/25 Time of Service: 11:28 Care Management Progress Note Progress Note Text Progress Note Text: CM huddled with [facility] (Prabhu) and [facility] staff regarding Fernando’s plan of care. Per report, Fernando remains hesitantly voluntary and discussed this with the ED provider. According to [facility], Fernando continues to endorse SI with a plan to return to his tent and “let the cold weather take him,” or to stop eating and drinking. Fernando has a assistant football coach who has been able to meet with him during his hospitalization. Referrals are pending, and a safety plan is in place. CM will continue to follow. Status Status: Voluntary Social Determinants of Health Screening Social Determinants of health last assessed in clinic: 02/13/25 Will the Patient Participate in the Screening?: Yes Do you worry about having a steady place to live?: no Problems where you live: no known problems In the past 12 months, have you had to go without electric, gas, oil or water in your home?: no 1. Within the past 12 months, we worried whether our food would run out before we got money to buy more.: Don't know/refused 2. Within the past 12 months, the food we bought just didn't last and we didn't have money to get more.: Don't know/refused Has lack of transportation kept you from medical appointments or from doing things needed for daily living?: no Has anyone in your life made you feel unsafe or unsupported?: no How hard is it for you to pay for the very basics like food, housing, medical care, and heating? Would you say it is:: Not hard at all Do you want help finding or keeping work or a job?: I do not need or want help If for any reason you need help with day-to-day activities such as bathing, preparing meals, shopping, managing finances, etc., do you get the help you need?: I don’t need any help How often do you feel lonely or isolated from those around you?: Often Do you speak a language other than Macedonian at home?: No Does the patient want assistance with any of the above?: Yes Health Related Social Needs Health related social needs: feeling lonely/isolated (Z60.8) Health related social needs details: Seeking placement to treat SI.
--- NOTE | 2025-02-13 07:10 | PDOC.CMSAFE ---
Date of service: 02/13/25 Time of Service: 08:35 Care Management Safety Plan Status Status: Voluntary Reason for Wait Reason for Wait: Inpatient Admission Safety Plan Safety Plan: VOLUNTARY FOR INPATIENT PSYCHIATRIC STABILIZATION. Patient is appropriate in all interactions since arriving at [facility]; Pt has demonstrated appropriate coping and communication skills, has articulated his or her needs and concerns and is fully engaged during staff interactions. Safety plan has been established with patient, and care team, to adhere to patient goals, identify restrictions based on behavioral status, address nutrition, and determine allowed personal belongings, tools for hygiene and personal care. Determine level of activity including ambulation, level of supervision, visitors, and determine privileges based on behaviors and level of engagement by pt. VOLUNTARY SAFETY PLAN: 1. Will remain on suicide precautions, in paper clothes 2. Will remain in Zone B under direct supervision of one-on-one staff at all times provided by [employer]; BRIAN, ACID BLEACHER still operator. 3. May have paper cups, plates, finger foods as well as a cardboard spoon with which to eat meals. 4. Follow [facility] Management of the Admitted Behavioral Health Patient policy. 5. Shower available in Zone B without restriction. 6. Personal belongings- squishy Emigdio, the Bible and soft items permitted at RN discretion. 7. Visitors- supportive visitors, at RN discretion. 8. Activities: soft cart items, hospital tablets (Netflix/[place]+/music) approved per RN discretion. 9. Bathroom available in Zone B without restriction. 10. Phone: limited to [facility] cordless phone at RN discretion. Due to VOLUNTARY status, if patient wishes to leave [facility], staff will contact [facility] Crisis Screener ([phone]) and Research And Development Tester ([phone]) as soon as possible. In the event of elopement, notify [place] [employer] ([phone]). Patient is currently voluntarily at [facility] and seeking inpatient admission when a bed becomes available. [facility] Frontline Intellectual Property Manager will continue seeking placement. Please contact the Research And Development Tester ([phone]) and [facility] Intellectual Property Manager ([phone]) for any needed changes in the Safety Plan. Safety plan has been provided to interdepartmental care team.
--- NOTE | 2025-02-13 11:44 | W.TELEPSYCH ---
Date of service: 02/13/25 Time of Service: 11:44 Summary Note PSYCHIATRY INITIAL EVALUATION Date/Time: 02/13/25, 10:40 AM BUILD AND RELEASE MANAGER Name: Fernando Molina : 1985 Location of the Patient: [facility] Clinician: Benigno Montalvo MD Summary 39 y.o. male with history of schizoaffective disorder, depressive disorder, bipolar disorder, substance use, , remitted cocaine/opioid use, psychiatric hospitalization, no current excessive drug/alcohol use, , for evaluation. Patient was referred to the ED following [facility] crisis assessment where he reported significant suicidal ideation, with multiple potential plans to kill himself. At that time, he appeared to have intent and was referred to the emergency department. Since being here, he has been a lot more guarded about this, insisting that he would never try to hurt himself because of his daughter, as well as other reasons including his baylee and other supports, however he readily admits that he has said too much and has the potential to live to evaluators in order to get released if that is what he desires. Patient presents high risk and meets criteria for inpatient psychiatric admission. I do recommend that he be held for involuntary admission, given that he presents as an unreliable historian and self admits that he is willing to lie to be released if necessary. Because patient is at elevated risk of patient presently meets criteria for inpatient psychiatric hospitalization. Working Diagnoses (Primary diagnosis first) (F25.0) Schizoaffective disorder, bipolar type ([facility]) ([facility]) CPT Codes: 06482 Plan Disposition: psychiatric admission Admission Type: Involuntary admission when medically stable Observation Level: Continue psych 1-to-1 OR Close observation per hospital protocol Pharmacological: - olanzapine 5mg PO/IM Q6h PRN agitation, avoid concomitant use of benzo within 1 hour of IM olanzapine - Patient refuses standing psychiatric meds - Is patient psychotic?: Yes; Were antipsychotic medications started?: Yes - Informed consent: Patient is unable to understand risks benefits of or consent to above recommended psychiatric medications in their current mental state. No surrogate decision maker is available. Without recommended medication patient will likely deteriorate further and possibly place themselves or others at risk. Patient is not legally compelled to take recommended medication at this time. Follow-Up: Q24 Additional Plan Details: Parts of this note were dictated using voice recognition software and may contain small irregularities and grammatical errors which are unintentional If questions arise about the psychiatric care of this patient, please call the [email or web address] to request a follow-up consult. Please do not contact me individually through the EMR chat as I am not regularly logged on to this system. The clinician for the follow-up visit may be different Discussed plan and recommendations with: Dr Novoa History This evaluation was conducted with the assistance of onsite staff via HIPAA-complaint video telepsychiatry, to which patient consented. Prior to interview, I identified the patient by full name and date of with the assistance of onsite staff. Requested by: Unknown Sources of information: Patient, medical record History of Present Illness 39 y.o. male, unemployed, with history of schizoaffective disorder, depressive disorder, bipolar disorder, substance use, , remitted cocaine/opioid use, psychiatric hospitalization, no current excessive drug/alcohol use, , for evaluation. 39 yo male, patient presented to the emergency department 02/12/2025 with schizoaffective disorder as well as a past history of alcohol use. He came in for suicidal ideation. Says he has felt suicidal and depressed because his daughter is not with him but has no intent actually act on these thoughts and denies intent to kill himself. He unfortunately will not disclose any methods that he has been considering, his rationale being that he does not intend to act on them. He also says he had been in a nursing home and got angry when he was kicked out so he came here to the ER. He says he does not take any medications and he does not believe in them. He has some baylee beliefs and demons and even a little that came to him at 1 point in his life and often gets them labeled as being psychotic, which frustrates him. He has no current mental health treatment. [facility] evaluated him at the recovery center and at the time of their evaluation he was indicating much more acute intent to kill himself saying he planned to either spend the winter in a nonheated nursing home and let nature take its course or killing himself by grinding up a large number of granados pits and ingesting them. Review of their note does show that he frequently answered with that nothing matters, I am just going to kill myself. He presented as paranoid and guarded. He apparently was asked to leave the nursing home this morning after becoming verbally aggressive with other consumers, which he identified as being part of the bad people that he feels following him. He stated that no matter where he goes he is followed by these bad people he did voluntarily go to the emergency room for further assessment. They recommended that if he wants to leave the hospital [facility] should be notified and EE considered . On psychiatric evaluation, patient is unreliable, organized, cooperative, alert, forthcoming, able to give clear history, . He says he was upset about not seeing his daughter. He says he said some things after people had set him up with a place to stay. He says someone asked him if they could get anything and he says a bullet. He says he has been depressed. He says he feels suicide is the only answer sometimes, but says he wouldn't do that. says he doesn't act because I'm too cowardly to take the cowardly way out. He says he also has God, his daughter, as well as other people who care about him. He says now his plan is to go to his nursing home [facility]. He also has sober living application. I asked about his statements to [facility] and he says he was running my mouth. He says what I mean and feel is I need to andrews up. He still feels he should go out to the nursing home and tough it out. I say very weak things. Messed with everywhere I go. People stomping their feet behind me, saying little comments. He says they know what they are doing and trying to trigger me. He says people are actively trying to destroy him and take away anything that is good, even having nursing home. He says they dont want him to be in recovery, have a job, be happy. He says they aren't people he knows they just know me. I asked why they would be targeting him in particular and he says a lot of reasons. When you are a good person and sober people dont like that. Denies current MH but he says he has been depressed since 7th grade We discussed voluntary vs involuntary and he feels clearly that all the issues noted are really happening. I explained to him even if he is here or at a facility voluntarily, he would have to be reassessed for safety to leave before he was released anywher. He then tells me essentially he would intend to lie on a reassessment, even though all thbis is happening I would say its just my imagination or intrusive thoguhts and I would just say I am not risk to self or others even if I'm suicidal. That's how a reevaluaiton would go Psychiatric Review of Symptoms (past two weeks) Positive: depressed mood, hopelessness, irritability, paranoia, anxiety, mood swings, Negative (symptoms NOT present): Suicidal ideation in past 2 weeks: active suicidal intent with planning Psychiatric History Past Psychiatric Diagnosis/Problems: schizoaffective disorder, depressive disorder, bipolar disorder Psychiatric Hospitalizations: psychiatric hospitalization Current Psychiatric Treatment: therapy, Hx of ACT team connection, Past Psychiatric Treatment: medication management, therapy Excessive Current Drug/Alcohol Use: none Excessive Remitted Drug/Alcohol Use: cocaine, opioid Drug/Alcohol Use: 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 Past Trauma: unknown Family Psychiatric History: unknown Collateral Contacted Contacted: No -- Risk History Medical History Medical Problems: deemed medically stable PCP: yes Psychiatric and Other Clinically-Relevant Medications: none Allergies and Adverse Medication Reactions: NKDA Demographics/Social History Gender Identity: male Education: unknown Employment: unemployed Social Support Network: on probation, violent charge, refuses to disclose, says its nonviolent Mental Status Exam Appearance and Attire: Normal Psychomotor: No abnormality Behavior and Attitude: Cooperative Speech: No abnormality Mood: Depressed Affect: Constricted Content: Suicidal ideation, Delusions, Paranoia, Worthlessness, Ideas of persecution Perception: No hallucinations Thought Process: Linear, Logical, Goal-directed Intelligence: Average Sensorium: Normal Orientation: Grossly oriented Abstraction: Appropriate Language: No abnormality Memory: Intact Knowledge: Appropriate for education and socioeconomic status Insight: Severe impairment Judgment: Severe impairment Risk Factors: Mood disorder; Psychotic disorder; History of inpatient hospitalization; History of ETOH/Opiates/Other Substance abuse; Hopelessness; Protective Factors: therapy; Summary Risk Assessment - Current Suicide Risk Elevated? Per PSS-3: - Current Violence Risk Elevated? No - Issues with ability to care for self: No Benigno Montalvo MD [facility]
--- NOTE | 2025-02-13 12:59 | ED.PROG1_ITS ---
Date of service: 02/13/25 Time of Service: 12:59 Psychiatric Border Handoff Update Brief Story: Care signed out by Dr. Jackson, please see her documentation regarding ED course overnight. Patient has schizoaffective disorder, here with suicidal ideation, paranoid delusional thought. Patient here voluntarily. Status: voluntary MDM Shift Events: Patient was seen by telepsychiatrist who notes concern for paranoid delusional thought with poor insight. He is concerned that patient may be untruthful regarding condition. He is concerned for the patient's wellbeing and would recommend involuntary treatment. I met with the patient, nurse and spoke with crisis dye machine operator. Patient is currently willing to stay for voluntary inpatient treatment. Plan to proceed with least restrictive means of treatment to include voluntary hospitalization at this time. Mediation Reconciliation performed: Yes Code Status ordered: Yes Diet ordered: Yes Telepsych recommendations (re: meds for agitation, etc): Plan Disposition: psychiatric admission Admission Type: Involuntary admission when medically stable Observation Level: Continue psych 1-to-1 OR Close observation per hospital protocol Pharmacological: - olanzapine 5mg PO/IM Q6h PRN agitation, avoid concomitant use of benzo within 1 hour of IM olanzapine - Patient refuses standing psychiatric meds - Is patient psychotic?: Yes; Were antipsychotic medications started?: Yes - Informed consent: Patient is unable to understand risks benefits of or consent to above recommended psychiatric medications in their current mental state. No surrogate decision maker is available. Without recommended medication patient will likely deteriorate further and possibly place themselves or others at risk. Patient is not legally compelled to take recommended medication at this time. Follow-Up: Q24 Discharge Plan Discharge Details Chief Complaint: PsychEval Clinical Impression: Suicidal ideation, Schizoaffective disorder Primary Care Provider: Unknown,Unknown ED Provider: Stevan Novoa Home Meds and New Rx's Prescriptions: No Action No Known Home Meds
--- NOTE | 2025-02-13 14:17 | MHPN_ITS ---
Date of service: 02/13/25 Time of Service: 09:50 Mental Health Emergency Note Release [facility] release signed:: Yes Reason for Visit Mental Health Reassessment In the last 2 weeks has the pt presented for ES prior to today?: Yes, presented at [facility] Client Information Client is: Adult Outpatient Well Housed: No,status: Homeless Non Suicidal Self Injury Current: No History: No Safety Risk/Harm to Self or Others Current Ideation to Harm Self or Others: Yes to self. Intent: yes, has intent. Plan: yes,has a plan. CALM/Risk Level Does risk to harm exist?: yes. Access to means: Yes. Types of Means: Other. Details: Client has identified that he will let the cold kill him while he stays in a tent, or that he will collect granados seeds and grind them up and consume them. . Counseling provided: No Risk: High Risk (Client continues to say that he will kill himself. He stated I'll do it in the hospital, or out of the hospital.) Duty to warn indicated: No Asssessment/Mental Status Appearance: Disheveled Attitude: Guarded and Hostile Behavior: Agitated (Became agitated when educated about Voluntary/Involuntary status) Speech: Normal Affect: Flat and Cogruent with mood Mood: Irritable Thought process: Unremarkable Hallucinations: No evidence Delusions: yes, Mosque and Persectory/Paranoid Attention: Unremarkable Perception: Not impaired Orientation: Fully orientated Memory: Intact Insight: Poor Judgement: Poor Neurovegetative Symptoms Sleep: Decrease Appetitie: Decrease Interests: Decrease Energy: Decrease Additional Issues: Assaultive/Threatening Behavior: Yes Medical Concerns: No Client engaged in active self harm w/weapon: No Threatening to run away: No Child reported abuse/neglect: No Voluntarily presenting for services: Yes Domestic violence is a concern: No Extreme Psychosis or extreme behavior is present: No Impression Client continues to state that he will kill himself. Nothing I do matters, and I'm going to kill myself. He states that he plans to stay in a tent and let the cold kill him or that he will stop eating and drinking. He states that this way it can be natural causes and not suicide, and that he can still get into heaven. Unit staff report that client has started to say a peer who is self- dialging is actually talking to and harassing him. Client became agitated when I offered education around his Voluntary status, and the fact that he currently meets involuntary status. He stated that I was threatening him, and that he would not talk again for the rest of his stay at the hospital. You can't keep me forever. If I don't say anything then I'll eventually be released and I'll kill myself. Plan/Disposition Recommended Disposition: Hospitalization facilities contacted. Plan: Client will remain in Zone B of [facility] until appropriate inpatient psychiatric hospital placement is secured. Person reported agreement to plan: Yes Reports/communication Outcome discussed with: ED/Personnel
[2025-02-13] MEDS: Melatonin 3 MG TAB PO (23:44)
[2025-02-14 01:01] VITALS: BP 169/82; PULSE 88; RESP 20; O2SAT 100
--- NOTE | 2025-02-14 08:32 | CMSP_ITS ---
Date of service: 02/14/25 Time of Service: 08:32 Care Management Safety Plan Status Status: Voluntary Reason for Wait Reason for Wait: Inpatient Admission Safety Plan Safety Plan: VOLUNTARY FOR INPATIENT PSYCHIATRIC STABILIZATION. Patient is appropriate in all interactions since arriving at [facility]; Pt has demonstrated appropriate coping and communication skills, has articulated his or her needs and concerns and is fully engaged during staff interactions. Safety plan has been established with patient, and care team, to adhere to patient goals, identify restrictions based on behavioral status, address nutrition, and determine allowed personal belongings, tools for hygiene and personal care. Determine level of activity including ambulation, level of supervision, visitors, and determine privileges based on behaviors and level of engagement by pt. VOLUNTARY SAFETY PLAN: 1. Will remain on suicide precautions, in paper clothes 2. Will remain in Zone B under direct supervision of one-on-one staff at all times provided by [employer]; BRIAN, FUNERAL PROFESSIONAL lumber press operator. 3. May have paper cups, plates, finger foods as well as a cardboard spoon with which to eat meals. 4. Follow [facility] Management of the Admitted Behavioral Health Patient policy. 5. Shower available in Zone B without restriction. 6. Personal belongings- squishy Emigdio, the Bible and soft items permitted at RN discretion. 7. Visitors- supportive visitors, at RN discretion. 8. Activities: soft cart items, hospital tablets (Netflix/[place]+/music) approved per RN discretion. 9. Bathroom available in Zone B without restriction. 10. Phone: limited to [facility] cordless phone at RN discretion. Due to VOLUNTARY status, if patient wishes to leave [facility], staff will contact [facility] Crisis Screener ([phone]) and In[employer] Rasper ([phone]) as soon as possible. In the event of elopement, notify [place] [employer] ([phone]). Patient is currently voluntarily at [facility] and seeking inpatient admission when a bed becomes available. [facility] Frontline Design Verification Engineer will continue seeking placement. Please contact the [employer] Rasper ([phone]) and [facility] Design Verification Engineer ([phone]) for any needed changes in the Safety Plan. Safety plan has been provided to interdepartmental care team.
--- NOTE | 2025-02-14 08:32 | PDOC.CMSAFE ---
Date of service: 02/14/25 Time of Service: 08:32 Care Management Safety Plan Status Status: Voluntary Reason for Wait Reason for Wait: Inpatient Admission Safety Plan Safety Plan: VOLUNTARY FOR INPATIENT PSYCHIATRIC STABILIZATION. Patient is appropriate in all interactions since arriving at [facility]; Pt has demonstrated appropriate coping and communication skills, has articulated his or her needs and concerns and is fully engaged during staff interactions. Safety plan has been established with patient, and care team, to adhere to patient goals, identify restrictions based on behavioral status, address nutrition, and determine allowed personal belongings, tools for hygiene and personal care. Determine level of activity including ambulation, level of supervision, visitors, and determine privileges based on behaviors and level of engagement by pt. VOLUNTARY SAFETY PLAN: 1. Will remain on suicide precautions, in paper clothes 2. Will remain in Zone B under direct supervision of one-on-one staff at all times provided by [employer]; BRIAN, EXCHANGE FLOOR MANAGER missing persons investigator. 3. May have paper cups, plates, finger foods as well as a cardboard spoon with which to eat meals. 4. Follow [facility] Management of the Admitted Behavioral Health Patient policy. 5. Shower available in Zone B without restriction. 6. Personal belongings- squishy Emigdio, the Bible and soft items permitted at RN discretion. 7. Visitors- supportive visitors, at RN discretion. 8. Activities: soft cart items, hospital tablets (Netflix/[place]+/music) approved per RN discretion. 9. Bathroom available in Zone B without restriction. 10. Phone: limited to [facility] cordless phone at RN discretion. Due to VOLUNTARY status, if patient wishes to leave [facility], staff will contact [facility] Crisis Screener ([phone]) and Gathering Worker ([phone]) as soon as possible. In the event of elopement, notify [place] [employer] ([phone]). Patient is currently voluntarily at [facility] and seeking inpatient admission when a bed becomes available. [facility] Frontline Compressor Station Chief Engineer will continue seeking placement. Please contact the Gathering Worker ([phone]) and [facility] Compressor Station Chief Engineer ([phone]) for any needed changes in the Safety Plan. Safety plan has been provided to interdepartmental care team.
--- NOTE | 2025-02-14 08:32 | PDOC.CMPRO ---
Date of service: 02/14/25 Time of Service: 08:32 Care Management Progress Note Progress Note Text Progress Note Text: CM huddled with [facility] (Mayra) and [facility] staff regarding Fernando’s plan of care. Per report, Fernando remains voluntary. Per Zone b staff, Fernando is interested in AA meetings; CM recommended contacting his catalyst recovery operator. Referrals are pending, and a safety plan is in place. CM will continue to follow. Status Status: Voluntary Social Determinants of Health Screening Social Determinants of health last assessed in clinic: 02/14/25 Will the Patient Participate in the Screening?: Yes Do you worry about having a steady place to live?: no Problems where you live: no known problems In the past 12 months, have you had to go without electric, gas, oil or water in your home?: no 1. Within the past 12 months, we worried whether our food would run out before we got money to buy more.: Don't know/refused 2. Within the past 12 months, the food we bought just didn't last and we didn't have money to get more.: Don't know/refused Has lack of transportation kept you from medical appointments or from doing things needed for daily living?: no Has anyone in your life made you feel unsafe or unsupported?: no How hard is it for you to pay for the very basics like food, housing, medical care, and heating? Would you say it is:: Not hard at all Do you want help finding or keeping work or a job?: I do not need or want help If for any reason you need help with day-to-day activities such as bathing, preparing meals, shopping, managing finances, etc., do you get the help you need?: I don’t need any help How often do you feel lonely or isolated from those around you?: Often Do you speak a language other than Albanian at home?: No Does the patient want assistance with any of the above?: Yes Health Related Social Needs Health related social needs: feeling lonely/isolated (Z60.8) Health related social needs details: Seeking placement to treat SI.
[2025-02-14 10:48] VITALS: BP 121/60; PULSE 80; RESP 20; TEMP 36.7; O2SAT 97
--- NOTE | 2025-02-14 12:54 | ED.PSYCHBOAR ---
Date of service: 02/14/25 Time of Service: 12:54 Psychiatric Border Handoff Update Brief Story: Patient with history of schizoaffective disorder, here with suicidal ideation. Status: voluntary Able to leave: would need physician/MAYDA and crisis evaluation prior to leaving Behavioral Concerns: none Potential Disposition: none MDM Shift Events: no update Medical Concerns: none Mediation Reconciliation performed: Yes Code Status ordered: Yes Diet ordered: Yes Discharge Plan Discharge Details Chief Complaint: PsychEval Clinical Impression: Suicidal ideation, Schizoaffective disorder Primary Care Provider: Unknown,Unknown ED Provider: Stevan Novoa Home Meds and New Rx's Prescriptions: No Action No Known Home Meds
--- NOTE | 2025-02-14 17:13 | PDOC.MHPN2 ---
Date of service: 02/14/25 Time of Service: 09:43 Mental Health Emergency Note Release [facility] release signed:: Yes Reason for Visit The client is known to [facility] in a limited capacity. The client has been hospitalized at [place] one time per his report and it was voluntary. A mobile crisis was completed on the client on 02/12 and the client was sent to [facility] to seek voluntary inpatient treatment. This rewriter meets with the client face to face for daily re-assessment. In the last 2 weeks has the pt presented for ES prior to today?: No CALM/Risk Level Does risk to harm exist?: yes. Access to means: No. Impression The client is a 39 year old male that is currently unhoused. The client is currently unemployed. Screening tools are not completed due to this being a re-assessment, however all under represented categories are honored during the assessment. Client demonstrates a reluctance to engage during the assessment, providing no eye contact and initially stating, I don't really have much to say, everything that I say will be used against me. He spontaneously asserts, I am not suicidal and I do not plan on killing myself. I was being dramatic because I cannot see or talk to my daughter, indicating a strong focus on his emotional distress related to his relationship with his daughter. Additionally, the client expresses feelings of being perceived as 'crazy' due to his baptist beliefs. It is noted that he reports a good appetite and sleep, indicating some stability in these areas of his life. Plan/Disposition Recommended Disposition: Hospitalization facilities contacted. Plan: The client will remain at [facility] ED on voluntary status. If the client attempts to leave a re-assessment should be completed and an EE considered. The client will be re-assessed daily until placement is secured or the client is able to be safety planned back to the community. Person reported agreement to plan: Yes Reports/communication Outcome discussed with: ED/Personnel (Fredadle completed with [facility] staff)
[2025-02-14 19:12] VITALS: BP 136/76; PULSE 70; TEMP 36.1; O2SAT 98
[2025-02-14] MEDS: Melatonin 3 MG TAB PO (22:09)
--- NOTE | 2025-02-15 07:09 | ED.PSYCHBOAR ---
Date of service: 02/15/25 Time of Service: 07:10 Psychiatric Border Handoff Update Brief Story: Patient remained stable throughout the shift. No interventions needed. He was reassessed by mental health today, and they would like to continue on the plan for inpatient placement. Status: voluntary Able to leave: would need physician/MAYDA and crisis evaluation prior to leaving Mediation Reconciliation performed: Yes Code Status ordered: Yes Diet ordered: Yes Discharge Plan Discharge Details Chief Complaint: PsychEval Clinical Impression: Suicidal ideation, Schizoaffective disorder Primary Care Provider: Unknown,Unknown ED Provider: Raudel Olmstead Home Meds and New Rx's Prescriptions: No Action No Known Home Meds
--- NOTE | 2025-02-15 08:16 | CMSP_ITS ---
Date of service: 02/15/25 Time of Service: 08:16 Care Management Safety Plan Status Status: Voluntary Reason for Wait Reason for Wait: Inpatient Admission Safety Plan Safety Plan: VOLUNTARY FOR INPATIENT PSYCHIATRIC STABILIZATION. Patient is appropriate in all interactions since arriving at [facility]; Pt has demonstrated appropriate coping and communication skills, has articulated his or her needs and concerns and is fully engaged during staff interactions. Safety plan has been established with patient, and care team, to adhere to patient goals, identify restrictions based on behavioral status, address nutrition, and determine allowed personal belongings, tools for hygiene and personal care. Determine level of activity including ambulation, level of supervision, visitors, and determine privileges based on behaviors and level of engagement by pt. 1245: An interdisciplinary department huddle was completed individually with the RN hotel service supervisor, Primary RN and [facility] clinician and CM to review any updates. Unfortunately it was discovered earlier today that referrals had not been sent to inpatient psych facilities, and referrals have since been sent. VOLUNTARY SAFETY PLAN: 1. Will remain on suicide precautions, in paper clothes 2. Will remain in Zone B under direct supervision of one-on-one staff at all times provided by [employer]; BRIAN, ASSEMBLY LINE MACHINE OPERATOR multi skilled operator. 3. May have paper cups, plates, finger foods as well as a cardboard spoon with which to eat meals. 4. Follow [facility] Management of the Admitted Behavioral Health Patient policy. 5. Shower available in Zone B without restriction. 6. Personal belongings- squishy Emigdio, the Bible and soft items permitted at RN discretion. 7. Visitors- supportive visitors, at RN discretion. 8. Activities: soft cart items, hospital tablets (Netflix/[place]+/music) approved per RN discretion. 9. Bathroom available in Zone B without restriction. 10. Phone: limited to [facility] cordless phone at RN discretion. Due to VOLUNTARY status, if patient wishes to leave [facility], staff will contact [facility] Crisis Screener ([phone]) and [employer] ([phone]) as soon as possible. In the event of elopement, notify [facility] Police ([phone]). Patient is currently voluntarily at [facility] and seeking inpatient admission when a bed becomes available. [facility] Frontline Freight Rate Clerk will continue seeking placement. Please contact the [employer] ([phone]) and [facility] Freight Rate Clerk ([phone]) for any needed changes in the Safety Plan. Safety plan has been provided to interdepartmental care team.
--- NOTE | 2025-02-15 08:16 | PDOC.CMSAFE ---
Date of service: 02/15/25 Time of Service: 08:16 Care Management Safety Plan Status Status: Voluntary Reason for Wait Reason for Wait: Inpatient Admission Safety Plan Safety Plan: VOLUNTARY FOR INPATIENT PSYCHIATRIC STABILIZATION. Patient is appropriate in all interactions since arriving at [facility]; Pt has demonstrated appropriate coping and communication skills, has articulated his or her needs and concerns and is fully engaged during staff interactions. Safety plan has been established with patient, and care team, to adhere to patient goals, identify restrictions based on behavioral status, address nutrition, and determine allowed personal belongings, tools for hygiene and personal care. Determine level of activity including ambulation, level of supervision, visitors, and determine privileges based on behaviors and level of engagement by pt. 1245: An interdisciplinary department huddle was completed individually with the RN animal shelter supervisor, Primary RN and [facility] clinician and CM to review any updates. Unfortunately it was discovered earlier today that referrals had not been sent to inpatient psych facilities, and referrals have since been sent. VOLUNTARY SAFETY PLAN: 1. Will remain on suicide precautions, in paper clothes 2. Will remain in Zone B under direct supervision of one-on-one staff at all times provided by [employer]; BRIAN, SYRUP MIXER equipment or machinery cleaner. 3. May have paper cups, plates, finger foods as well as a cardboard spoon with which to eat meals. 4. Follow [facility] Management of the Admitted Behavioral Health Patient policy. 5. Shower available in Zone B without restriction. 6. Personal belongings- squishy Emigdio, the Bible and soft items permitted at RN discretion. 7. Visitors- supportive visitors, at RN discretion. 8. Activities: soft cart items, hospital tablets (Netflix/[place]+/music) approved per RN discretion. 9. Bathroom available in Zone B without restriction. 10. Phone: limited to [facility] cordless phone at RN discretion. Due to VOLUNTARY status, if patient wishes to leave [facility], staff will contact [facility] Crisis Screener ([phone]) and Fingernail Technician ([phone]) as soon as possible. In the event of elopement, notify [facility] Police ([phone]). Patient is currently voluntarily at [facility] and seeking inpatient admission when a bed becomes available. [facility] Frontline Fire Extinguisher Repairer will continue seeking placement. Please contact the Fingernail Technician ([phone]) and [facility] Fire Extinguisher Repairer ([phone]) for any needed changes in the Safety Plan. Safety plan has been provided to interdepartmental care team.
[2025-02-15 10:11] VITALS: BP 128/73; PULSE 99; RESP 16; TEMP 37; O2SAT 99
[2025-02-15 19:26] VITALS: BP 129/79; PULSE 88; RESP 16; O2SAT 100
[2025-02-15] MEDS: Melatonin 3 MG TAB PO (22:26)
--- NOTE | 2025-02-16 03:14 | W.EDPROG ---
Date of service: 02/16/25 Time of Service: 03:14 Medical Decision Making Patient reporting upper central abdominal pain that has been bothering him for a couple of days now. Thought it was related to reflux but tonight really uncomfortable and a little nauseated. Labs from admission look fine thought no lipase done. Will obtain tonight. His abdominal exam tonight is soft, nondistended and nontender. Will try Mylanta and Pepcid orally to see if this helps pending lipase result. Patient refused blood draw for lipase. Seems better with meds. Can hold off on blood draw for now. Lab Data Lab results reviewed: Yes I reviewed the patient's lab results. Quality:SDOH Health Related Social Needs: Health related social needs lonely/isolated Health related social needs details Seeking placement to treat SI. Discharge Plan Discharge Details Chief Complaint: PsychEval Clinical Impression: Suicidal ideation, Schizoaffective disorder Primary Care Provider: Unknown,Unknown ED Provider: Alexis Araya Home Meds and New Rx's Prescriptions: No Action No Known Home Meds
[2025-02-16] MEDS: Mylanta Suspension 30 ML CUP PO (03:20)
[2025-02-16] MEDS: Famotidine 20 MG TAB PO (03:20)
--- NOTE | 2025-02-16 07:00 | ED.PROG1_ITS ---
Date of service: 02/16/25 Time of Service: 07:00 Psychiatric Border Handoff Update Brief Story: In brief, this is a 39-year-old male patient with a history of schizoaffective disorder reporting voluntarily with suicidal ideation. Prior to my taking over their care, the patient was medically cleared, and has been resting comfortably. They have met with the bilingual social worker and we are awaiting final dispo. They have not required any additional medications for restraint or sedation. They have been admitted to ED psych observation. The patient was accepted to [place] for ongoing inpatient psychiatric care. He will be transported by ambulance and remained hemodynamically appropriate while under my care. Candelaria Romo MD Status: voluntary Able to leave: would need physician/MAYDA and crisis evaluation prior to leaving Behavioral Concerns: None Potential Disposition: In-pt Medical Concerns: Abd pain during last shift, likely GERD/gastritis, responded to mylanta and pepcid Mediation Reconciliation performed: Yes Code Status ordered: Yes Diet ordered: Yes Discharge Plan Disposition Patient Disposition: Home Condition: Stable Discharge Details Clinical Impression: Suicidal ideation, Schizoaffective disorder Primary Care Provider: Unknown,Unknown ED Provider: Candelaria Romo Home Meds and New Rx's Prescriptions: No Action No Known Home Meds Discharge Instructions Instructions: Schizoaffective Disorder (DC) Additional Instructions: You were seen in the emergency department today for evaluation of suicidal ideation. In our department you had a full physical examination performed, and are medically cleared. You met with a member of our crisis team, and are being transferred to [place] for ongoing psychiatric care. Please follow all recommendations by your mental health provider, and follow-up with your primary care providers upon discharge. Thank you for allowing us to be part of your care. Stand Alone Forms: Portal Information
--- NOTE | 2025-02-16 08:07 | CMSP_ITS ---
Date of service: 02/16/25 Time of Service: 08:07 Care Management Safety Plan Status Status: Voluntary Reason for Wait Reason for Wait: Inpatient Admission Safety Plan Safety Plan: VOLUNTARY FOR INPATIENT PSYCHIATRIC STABILIZATION. Patient is appropriate in all interactions since arriving at [facility]; Pt has demonstrated appropriate coping and communication skills, has articulated his or her needs and concerns and is fully engaged during staff interactions. Safety plan has been established with patient, and care team, to adhere to patient goals, identify restrictions based on behavioral status, address nutrition, and determine allowed personal belongings, tools for hygiene and personal care. Determine level of activity including ambulation, level of supervision, visitors, and determine privileges based on behaviors and level of engagement by pt. An interdisciplinary department huddle was completed individually with the RN harvest crew supervisor, Primary RN and [facility] clinician and CM to review any updates. 02/16/25 Patient has a bed offer at [place] and will be transported via [facility]. VOLUNTARY SAFETY PLAN: 1. Will remain on suicide precautions, in paper clothes 2. Will remain in Zone B under direct supervision of one-on-one staff at all times provided by [employer]; WOODWIND REEDS CUTTER, TRANSIT CLERK addictions counselor. 3. May have paper cups, plates, finger foods as well as a cardboard spoon with which to eat meals. 4. Follow [facility] Management of the Admitted Behavioral Health Patient policy. 5. Shower available in Zone B without restriction. 6. Personal belongings- squishy Emigdio, the Bible and soft items permitted at RN discretion. 7. Visitors- supportive visitors, at RN discretion. 8. Activities: soft cart items, hospital tablets (Netflix/Yulisa+/music) a pproved per RN discretion. 9. Bathroom available in Zone B without restriction. 10. Phone: limited to [facility] cordless phone at RN discretion. Due to VOLUNTARY status, if patient wishes to leave [facility], staff will contact [facility] Crisis Screener ([phone]) and Kindergarten Assistant ([phone]) as soon as possible. In the event of elopement, notify [facility] Police ([phone]). Patient is currently voluntarily at [facility] and seeking inpatient admission when a bed becomes available. [facility] Frontline Horseshoer will continue seeking placement. Please contact the Kindergarten Assistant ([phone]) and [facility] Horseshoer ([phone]) for any needed changes in the Safety Plan. Safety plan has been provided to interdepartmental care team.
--- NOTE | 2025-02-16 08:07 | PDOC.CMSAFE ---
Date of service: 02/16/25 Time of Service: 08:07 Care Management Safety Plan Status Status: Voluntary Reason for Wait Reason for Wait: Inpatient Admission Safety Plan Safety Plan: VOLUNTARY FOR INPATIENT PSYCHIATRIC STABILIZATION. Patient is appropriate in all interactions since arriving at [facility]; Pt has demonstrated appropriate coping and communication skills, has articulated his or her needs and concerns and is fully engaged during staff interactions. Safety plan has been established with patient, and care team, to adhere to patient goals, identify restrictions based on behavioral status, address nutrition, and determine allowed personal belongings, tools for hygiene and personal care. Determine level of activity including ambulation, level of supervision, visitors, and determine privileges based on behaviors and level of engagement by pt. An interdisciplinary department huddle was completed individually with the RN supervisor order takers, Primary RN and [facility] clinician and CM to review any updates. 02/16/25 Patient has a bed offer at [place] and will be transported via [facility]. VOLUNTARY SAFETY PLAN: 1. Will remain on suicide precautions, in paper clothes 2. Will remain in Zone B under direct supervision of one-on-one staff at all times provided by [employer]; LUNCHROOM MONITOR, MANAGER MUSIC filter plant supervisor. 3. May have paper cups, plates, finger foods as well as a cardboard spoon with which to eat meals. 4. Follow [facility] Management of the Admitted Behavioral Health Patient policy. 5. Shower available in Zone B without restriction. 6. Personal belongings- squishy Emigdio, the Bible and soft items permitted at RN discretion. 7. Visitors- supportive visitors, at RN discretion. 8. Activities: soft cart items, hospital tablets (Netflix/Yulisa+/music) approved per RN discretion. 9. Bathroom available in Zone B without restriction. 10. Phone: limited to [facility] cordless phone at RN discretion. Due to VOLUNTARY status, if patient wishes to leave [facility], staff will contact [facility] Crisis Screener ([phone]) and Fast Food Crew Lead ([phone]) as soon as possible. In the event of elopement, notify [employer] Police ([phone]). Patient is currently voluntarily at [facility] and seeking inpatient admission when a bed becomes available. [facility] Frontline Can Filling Room Sweeper will continue seeking placement. Please contact the Fast Food Crew Lead ([phone]) and [facility] Can Filling Room Sweeper ([phone]) for any needed changes in the Safety Plan. Safety plan has been provided to interdepartmental care team.
[2025-02-16 09:20] VITALS: BP 139/73; PULSE 79; RESP 17; TEMP 36.9; O2SAT 99
--- NOTE | 2025-02-16 15:38 | MHPN_ITS ---
Date of service: 02/16/25 Time of Service: 10:58 Mental Health Emergency Note Release [facility] release signed:: Yes Reason for Visit The client is known to [facility] in a limited capacity. The client has been hospitalized at [place] one time per his report and it was voluntary. A mobile crisis was completed on the client on 02/12 and the client was sent to [facility] to seek voluntary inpatient treatment. This consumer loan underwriter meets with the client face to face for daily re-assessment. In the last 2 weeks has the pt presented for ES prior to today?: No CALM/Risk Level Does risk to harm exist?: yes. Access to means: No. Impression The client is a 39 year old male that is currently unhoused. The client is currently unemployed. Screening tools are not completed due to this being a re-assessment, however all under represented categories are honored during the assessment. The client starts this assessment by stating: I am not suicidal, I am not going to do anything to harm myself. The client then states: the only reason that I am here is because people fuck with me and I thought my daughter was in danger so I was significantly suicidal. The client reports that he has not seen his daughter for almost a year and does not know if she is safe. Although the client denies suicidal ideations initially he makes many statements that if his daughter is in danger or is in foster care he will end his life because he is nothing without her. The client reports that he wants to contact his father to check on the safety of his daughter, but does not think that his father will check. The client is agreeable to stay at [facility] to continue to seek voluntary treatment. Plan/Disposition Recommended Disposition: Hospitalization (Accepted to [facility]) facilities contacted. Plan: The client has been accepted by [facility] and will be transported via EMS this afternoon. Hospital notification will need to be completed. Person reported agreement to plan: Yes Reports/communication Outcome discussed with: ED/Personnel (Radha completed with [facility] staff)
== END 2025-02-16 14:35 | disposition home or self-care (01) ==
PROVIDERS: Emergency Provider Emergency Medicine
DX: F25.9 Schizoaffective disorder, unspecified (principal); R45.851 Suicidal ideations; Z60.8 Other problems related to social environment
CPT/HCPCS: 99285 ×6; 00123; 80048; 80053; 80307; 83690; H0046; 80320; 81003; 85025